=== PATIENT | male | born 1950 | race Hispanic/Latino ===

== ENCOUNTER → 2018-02-19 | Outpatient (CLI) | payer OTHER | LOC: RAH 11:22 | PROVIDERS: ATTEND Internal Medicine | DX: M11.262 Other chondrocalcinosis, left knee (principal); M17.12 Unilateral primary osteoarthritis, left knee | CPT/HCPCS: 73562; 73590; 93971 ==

== ENCOUNTER → 2018-05-31 | Outpatient (CLI) | payer OTHER | END | disposition home or self-care (01) | LOC: RAH 14:26 | PROVIDERS: ATTEND Internal Medicine | DX: I82.402 Acute embolism and thrombosis of unspecified deep veins of left lower extremity (principal) | CPT/HCPCS: 93971 ==

== ENCOUNTER → 2020-10-15 | Outpatient (CLI) | payer OTHER | END | disposition home or self-care (01) | LOC: RAH 09:33 | PROVIDERS: ATTEND Internal Medicine | DX: M19.011 Primary osteoarthritis, right shoulder (principal); M47.816 Spondylosis without myelopathy or radiculopathy, lumbar region; M48.07 Spinal stenosis, lumbosacral region; M25.78 Osteophyte, vertebrae; M54.5 Low back pain; M25.511 Pain in right shoulder | CPT/HCPCS: 72100; 73030 ==

== ENCOUNTER 2021-03-12 12:41 | Inpatient (IN) | payer OTHER ==
[~2021-03-12] VITALS: Ht 180.3 cm; Wt 84.1 kg
[2021-03-12 13:44] LABS: BASOPHILS % (AUTO) 0.5 % (0.0-5.0); EOSINOPHILS % (AUTO) 2.2 % (0.0-8.0); HEMATOCRIT 35.6 % (42-54); LYMPHOCYTES % (AUTO) 14.7 % (21.0-51.0); MEAN CORPUSCULAR HEMOGLOBIN 30.1 pg (27.0-33.0); MEAN CORPUSCULAR VOLUME 88.6 fL (79-99); MONOCYTES % (AUTO) 6.5 % (3.0-13.0); NEUTROPHILS % (AUTO) 75.8 % (40.0-77.0); PLATELET COUNT (AUTO) 185 K/uL (130-400); RED BLOOD CELL COUNT(AUTO) 4.02 MIL/uL (4.50-6.20); RED CELL DISTRIBUTION WIDTH 13.3 % (11.0-15.5); WHITE BLOOD COUNT (AUTO) 9.4 K/uL (4.8-10.8)
[2021-03-12 13:55] LABS: CREATININE 2.8 mg/dL (0.5-1.5); POTASSIUM 4.9 mmol/L (3.5-5.1)
[2021-03-12 14:04] LABS: ALBUMIN 3.8 g/dL (3.5-5.0); BILIRUBIN,TOTAL 0.5 mg/dL (0.2-1.0); TOTAL PROTEIN, SERUM 6.8 g/dL (6.0-8.3)
[2021-03-12 14:17] LABS: B-TYPE NATRIURETIC PEPTIDE 27 pg/mL (0-100)
[2021-03-12] MEDS ORDERED: AMLO-257 PO (16:11)
[2021-03-12] MEDS ORDERED: LOSA100T58 PO (16:11)
[2021-03-12] MEDS ORDERED: FURO20TA4 PO (16:11)
[2021-03-12] MEDS ORDERED: CYAN250010 PO (16:11)
[2021-03-12] MEDS ORDERED: ATOR40TA71 PO (16:11)
[2021-03-12] MEDS ORDERED: MECL-160 PO (16:11)
[2021-03-12] MEDS ORDERED: HYDR-3420 PO (16:11)
[2021-03-12] MEDS ORDERED: NEBI10TA PO (16:11)
[2021-03-12] MEDS ORDERED: ONDANSETRON 4MG INJ IV PRN (16:30)
[2021-03-12] MEDS ORDERED: ACETAMINOPHEN 325 MG TAB PO PRN (16:30)
[2021-03-12] MEDS: FAMOTIDINE 20MG TAB PO SCH (17:24)
[2021-03-12] MEDS: 0.9%NACL 1000ML 1,000 ML IV SCH (17:24)
[2021-03-12 17:34] LABS: HEMOGLOBIN A1C 6.1 % (4.0-6.0)
[2021-03-12 17:57] LABS: % IRON SATURATION 28.8 % (30-44)
[2021-03-12 18:06] LABS: MAGNESIUM 1.9 mg/dL (1.80-2.40); PHOSPHORUS 4.9 mg/dL (2.5-4.9); THYROID STIMULATING HORMONE 0.68 uIU/mL (0.36-3.74)
[2021-03-12 20:23] LABS: APPEARANCE,URINE Clear (CLEAR); BILIRUBIN,URINE Negative (NEGATIVE); COLOR,URINE Yellow (YELLOW); GLUCOSE, URINE (UA) Negative (NEGATIVE); KETONES,URINE Negative (NEGATIVE); LEUKOCYTE ESTERASE ,URINE Negative (NEGATIVE); NITRATE,URINE Negative (NEGATIVE); OCCULT BLOOD,URINE Negative (NEGATIVE); PROTEIN,URINE Negative (NEGATIVE); UROBILINOGEN,URINE 0.2 mg/dL (0.2-1.0)
[2021-03-12 20:28] LABS: PROTEIN,URINE RANDOM 8.3 mg/dL (0-11.9)
[2021-03-12] MEDS: INSULIN HUMULIN R 100 UNIT/ML 3ML SQ SCH (21:00)
[2021-03-12] MEDS: ATORVASTATIN 40 MG TABLET PO SCH (21:31)
[2021-03-12] MEDS: AMLODIPINE 5 MG TAB PO SCH (21:31)
[2021-03-12] MEDS: HYDRALAZINE HCL 10 MG TABLET PO SCH (21:31)
[2021-03-13] MEDS: ACETAMINOPHEN 325 MG TAB PO PRN ×4 (01:41→18:40)
[2021-03-13] MEDS: 0.9%NACL 1000ML 1,000 ML IV SCH ×2 (02:20→09:00)
[2021-03-13 07:30] LABS: CHOLESTEROL 78 mg/dL (<200); HDL CHOLESTEROL 38 mg/dL (29-71); LDL DIRECT 28 mg/dL (0-99); TRIGLYCERIDES 53 mg/dL (30-200)
[2021-03-13] MEDS: INSULIN HUMULIN R 100 UNIT/ML 3ML SQ SCH ×4 (07:30→20:44)
[2021-03-13] MEDS: CYANOCOBALAMIN (VITAMIN B-12) 1,000 MCG TABLET PO SCH (07:54)
[2021-03-13] MEDS: FAMOTIDINE 20MG TAB PO SCH (09:00)
[2021-03-13] MEDS: HYDRALAZINE HCL 10 MG TABLET PO SCH ×3 (09:00→21:33)
[2021-03-13] MEDS: AMLODIPINE 5 MG TAB PO SCH ×2 (09:00→21:33)
[2021-03-13] MEDS: ENOXAPARIN SODIUM 40 MG/0.4 ML SYRINGE SQ SCH (09:25)
[2021-03-13 09:29] LABS: BASOPHILS % (AUTO) 0.7 % (0.0-5.0); HEMATOCRIT 36.3 % (42-54); LYMPHOCYTES % (AUTO) 27.3 % (21.0-51.0); MEAN CORPUSCULAR HGB CONC 33.6 g/dL (32.0-36.0); MEAN CORPUSCULAR VOLUME 89.2 fL (79-99); MONOCYTES % (AUTO) 9.2 % (3.0-13.0); NEUTROPHILS % (AUTO) 57.5 % (40.0-77.0); PLATELET COUNT (AUTO) 174 K/uL (130-400); RED BLOOD CELL COUNT(AUTO) 4.07 MIL/uL (4.50-6.20); RED CELL DISTRIBUTION WIDTH 13.4 % (11.0-15.5)
[2021-03-13 09:42] LABS: ALBUMIN 3.6 g/dL (3.5-5.0); BILIRUBIN,TOTAL 0.6 mg/dL (0.2-1.0); CREATININE 1.9 mg/dL (0.5-1.5); POTASSIUM 4.6 mmol/L (3.5-5.1); TOTAL PROTEIN, SERUM 6.4 g/dL (6.0-8.3)
[2021-03-13] MEDS: ATORVASTATIN 40 MG TABLET PO SCH (21:33)
[2021-03-14] MEDS: ACETAMINOPHEN 325 MG TAB PO PRN (01:12)
[2021-03-14 07:06] LABS: BASOPHILS % (AUTO) 0.7 % (0.0-5.0); EOSINOPHILS % (AUTO) 7.8 % (0.0-8.0); HEMATOCRIT 35.2 % (42-54); LYMPHOCYTES % (AUTO) 37.2 % (21.0-51.0); MEAN CORPUSCULAR HEMOGLOBIN 29.7 pg (27.0-33.0); MEAN CORPUSCULAR HGB CONC 33.8 g/dL (32.0-36.0); MEAN CORPUSCULAR VOLUME 87.8 fL (79-99); MONOCYTES % (AUTO) 9.8 % (3.0-13.0); NEUTROPHILS % (AUTO) 44.5 % (40.0-77.0); PLATELET COUNT (AUTO) 169 K/uL (130-400); RED BLOOD CELL COUNT(AUTO) 4.01 MIL/uL (4.50-6.20); RED CELL DISTRIBUTION WIDTH 13.1 % (11.0-15.5); WHITE BLOOD COUNT (AUTO) 5.9 K/uL (4.8-10.8)
[2021-03-14 07:28] LABS: ALBUMIN 3.3 g/dL (3.5-5.0); BILIRUBIN,TOTAL 0.6 mg/dL (0.2-1.0); CREATININE 1.5 mg/dL (0.5-1.5); POTASSIUM 4.4 mmol/L (3.5-5.1); TOTAL PROTEIN, SERUM 6.2 g/dL (6.0-8.3)
[2021-03-14] MEDS: INSULIN HUMULIN R 100 UNIT/ML 3ML SQ SCH ×4 (07:30→21:00)
[2021-03-14] MEDS: ENOXAPARIN SODIUM 40 MG/0.4 ML SYRINGE SQ SCH (08:58)
[2021-03-14] MEDS: FAMOTIDINE 20MG TAB PO SCH (08:58)
[2021-03-14] MEDS: CYANOCOBALAMIN (VITAMIN B-12) 1,000 MCG TABLET PO SCH (08:58)
[2021-03-14] MEDS: AMLODIPINE 5 MG TAB PO SCH ×2 (08:58→20:52)
[2021-03-14] MEDS: HYDRALAZINE HCL 10 MG TABLET PO SCH ×3 (08:58→20:52)
[2021-03-14] MEDS ORDERED: INS7030 SQ ×2 (14:55)
[2021-03-14 16:00] VITALS: BP 147/60
[2021-03-14 20:00] VITALS: BP 155/64
[2021-03-14] MEDS: ATORVASTATIN 40 MG TABLET PO SCH (20:52)
[2021-03-15] VITALS: BP 140/53
[2021-03-15 04:00] VITALS: BP 135/57
[2021-03-15 04:22] LABS: BASOPHILS % (AUTO) 0.6 % (0.0-5.0); EOSINOPHILS % (AUTO) 7.2 % (0.0-8.0); HEMATOCRIT 33.9 % (42-54); LYMPHOCYTES % (AUTO) 32.6 % (21.0-51.0); MEAN CORPUSCULAR HEMOGLOBIN 29.5 pg (27.0-33.0); MEAN CORPUSCULAR HGB CONC 33.3 g/dL (32.0-36.0); MEAN CORPUSCULAR VOLUME 88.5 fL (79-99); MONOCYTES % (AUTO) 8.3 % (3.0-13.0); PLATELET COUNT (AUTO) 152 K/uL (130-400); RED BLOOD CELL COUNT(AUTO) 3.83 MIL/uL (4.50-6.20); RED CELL DISTRIBUTION WIDTH 12.9 % (11.0-15.5); WHITE BLOOD COUNT (AUTO) 6.5 K/uL (4.8-10.8)
[2021-03-15 04:35] LABS: ALBUMIN 3.2 g/dL (3.5-5.0); BILIRUBIN,TOTAL 0.5 mg/dL (0.2-1.0); CREATININE 1.2 mg/dL (0.5-1.5); POTASSIUM 3.9 mmol/L (3.5-5.1)
[2021-03-15 04:53] LABS: INR 1.21 (0.85-1.15)
[2021-03-15 04:55] LABS: PARTIAL THROMBOPLASTIN TIME 26.6 SEC (26.3-35.5)
[2021-03-15] MEDS: INSULIN HUMULIN R 100 UNIT/ML 3ML SQ SCH ×4 (06:58→20:32)
[2021-03-15 07:45] VITALS: BP 106/67
[2021-03-15] MEDS: CYANOCOBALAMIN (VITAMIN B-12) 1,000 MCG TABLET PO SCH (08:00)
[2021-03-15] MEDS: AMLODIPINE 5 MG TAB PO SCH ×2 (08:15→20:32)
[2021-03-15] MEDS: FAMOTIDINE 20MG TAB PO SCH (08:15)
[2021-03-15] MEDS: HYDRALAZINE HCL 10 MG TABLET PO SCH ×3 (08:15→20:32)
[2021-03-15 11:36] VITALS: BP 115/58
[2021-03-15 15:47] VITALS: BP 157/55
[2021-03-15 19:00] VITALS: BP 160/64
[2021-03-15] MEDS: ATORVASTATIN 40 MG TABLET PO SCH (20:32)
[2021-03-16] VITALS (11 sets, daily range): BP systolic 129–154; BP diastolic 56–75
[2021-03-16 05:33] LABS: BASOPHILS % (AUTO) 0.7 % (0.0-5.0); EOSINOPHILS % (AUTO) 6.3 % (0.0-8.0); HEMATOCRIT 32.5 % (42-54); LYMPHOCYTES % (AUTO) 30.5 % (21.0-51.0); MEAN CORPUSCULAR HEMOGLOBIN 30.1 pg (27.0-33.0); MEAN CORPUSCULAR HGB CONC 34.8 g/dL (32.0-36.0); MEAN CORPUSCULAR VOLUME 86.4 fL (79-99); MONOCYTES % (AUTO) 9.1 % (3.0-13.0); NEUTROPHILS % (AUTO) 53.1 % (40.0-77.0); PLATELET COUNT (AUTO) 168 K/uL (130-400); RED BLOOD CELL COUNT(AUTO) 3.76 MIL/uL (4.50-6.20); RED CELL DISTRIBUTION WIDTH 12.7 % (11.0-15.5)
[2021-03-16 05:50] LABS: ALBUMIN 3.3 g/dL (3.5-5.0); BILIRUBIN,TOTAL 0.7 mg/dL (0.2-1.0); CREATININE 1.3 mg/dL (0.5-1.5); TOTAL PROTEIN, SERUM 6.2 g/dL (6.0-8.3)
[2021-03-16] MEDS: INSULIN HUMULIN R 100 UNIT/ML 3ML SQ SCH ×4 (06:35→21:00)
[2021-03-16] MEDS: HYDRALAZINE HCL 10 MG TABLET PO SCH ×3 (08:50→21:59)
[2021-03-16] MEDS: AMLODIPINE 5 MG TAB PO SCH ×2 (08:51→21:59)
[2021-03-16] MEDS ORDERED: MEPERIDINE-PF 25 MG/ML SYG ONE (13:47)
[2021-03-16] MEDS ORDERED: MIDAZOLAM HCL 1 MG/ML 2ML VIAL ONE (13:47)
[2021-03-16] MEDS ORDERED: LIDOCAINE HCL 400MG/20ML VIAL ONE ×2 (13:47→14:56)
[2021-03-16] MEDS ORDERED: HEPARIN 10,000 UNIT/10ML (1,000 UNIT/ML) VIAL ONE (14:10)
[2021-03-16] MEDS ORDERED: ISOPROTERENOL HCL 0.2 MG/ML AMP/VIAL/BAG ONE (14:38)
[2021-03-16] MEDS: ASPIRIN 81 MG EC TAB PO SCH (16:44)
[2021-03-16] MEDS: FAMOTIDINE 20MG TAB PO SCH (16:44)
[2021-03-16] MEDS: CYANOCOBALAMIN (VITAMIN B-12) 1,000 MCG TABLET PO SCH (16:45)
[2021-03-16] MEDS: ATORVASTATIN 40 MG TABLET PO SCH (21:59)
[2021-03-17] VITALS: BP 143/68
[2021-03-17 04:00] VITALS: BP 142/70
[2021-03-17 04:33] LABS: BASOPHILS % (AUTO) 0.4 % (0.0-5.0); HEMATOCRIT 33.9 % (42-54); LYMPHOCYTES % (AUTO) 27.4 % (21.0-51.0); MEAN CORPUSCULAR HEMOGLOBIN 29.2 pg (27.0-33.0); MEAN CORPUSCULAR HGB CONC 33.6 g/dL (32.0-36.0); MEAN CORPUSCULAR VOLUME 86.9 fL (79-99); MONOCYTES % (AUTO) 7.8 % (3.0-13.0); NEUTROPHILS % (AUTO) 59.1 % (40.0-77.0); PLATELET COUNT (AUTO) 155 K/uL (130-400); RED CELL DISTRIBUTION WIDTH 12.7 % (11.0-15.5); WHITE BLOOD COUNT (AUTO) 7.2 K/uL (4.8-10.8)
[2021-03-17 04:56] LABS: ALBUMIN 3.4 g/dL (3.5-5.0); BILIRUBIN,TOTAL 0.7 mg/dL (0.2-1.0); CREATININE 1.3 mg/dL (0.5-1.5); POTASSIUM 4.1 mmol/L (3.5-5.1); TOTAL PROTEIN, SERUM 6.2 g/dL (6.0-8.3)
[2021-03-17] MEDS: INSULIN HUMULIN R 100 UNIT/ML 3ML SQ SCH (06:49)
[2021-03-17 07:00] VITALS: BP 141/61
[2021-03-17] MEDS ORDERED: AEC81 PO (07:53)
[2021-03-17] MEDS ORDERED: LINA5TAB PO (07:53)
[2021-03-17] MEDS: ASPIRIN 81 MG EC TAB PO SCH (08:03)
[2021-03-17] MEDS: AMLODIPINE 5 MG TAB PO SCH (08:03)
[2021-03-17] MEDS: FAMOTIDINE 20MG TAB PO SCH (08:04)
[2021-03-17] MEDS: HYDRALAZINE HCL 10 MG TABLET PO SCH (08:04)
[2021-03-17] MEDS: CYANOCOBALAMIN (VITAMIN B-12) 1,000 MCG TABLET PO SCH (08:04)
[2021-03-17] MEDS ORDERED: METO5 PO (08:19)
[2021-03-17] MEDS ORDERED: METOCLOPRAMIDE 5 MG TABLET PO SCH (11:30)
[2021-04-22] MEDS ORDERED: HYDR-4153 PO (11:31)
== END 2021-03-17 09:20 | disposition home or self-care (01) | DRG 274 ==
LOC: EDH 12:41 → OBSVTOIN 16:29 → EDHIP 16:29 → 4DH 03-14 12:56
PROVIDERS: ADMIT Internal Medicine; ATTEND Internal Medicine
PROC: 4A0234Z Measurement of Cardiac Electrical Activity, Percutaneous Approach (ICD-10-PCS; principal; 2021-03-16)
PROC: 4A023FZ Measurement of Cardiac Rhythm, Percutaneous Approach (ICD-10-PCS; 2021-03-16)
PROC: 0JH602Z Insertion of Monitoring Device into Chest Subcutaneous Tissue and Fascia, Open Approach (ICD-10-PCS; 2021-03-16)
DX: I44.0 Atrioventricular block, first degree (principal); N17.9 Acute kidney failure, unspecified; I25.3 Aneurysm of heart; G45.1 Carotid artery syndrome (hemispheric); I13.0 Hypertensive heart and chronic kidney disease with heart failure and stage 1 through stage 4 chronic kidney disease, or unspecified chronic kidney disease; I50.32 Chronic diastolic (congestive) heart failure; R55 Syncope and collapse; E11.22 Type 2 diabetes mellitus with diabetic chronic kidney disease; E11.43 Type 2 diabetes mellitus with diabetic autonomic (poly)neuropathy; K31.84 Gastroparesis; Z20.822 Contact with and (suspected) exposure to COVID-19; E11.40 Type 2 diabetes mellitus with diabetic neuropathy, unspecified; E78.5 Hyperlipidemia, unspecified; E11.649 Type 2 diabetes mellitus with hypoglycemia without coma; N18.30 Chronic kidney disease, stage 3 unspecified; I45.10 Unspecified right bundle-branch block; M47.819 Spondylosis without myelopathy or radiculopathy, site unspecified; I95.9 Hypotension, unspecified; M25.461 Effusion, right knee; R63.4 Abnormal weight loss; Z68.25 Body mass index [BMI] 25.0-25.9, adult; Z79.82 Long term (current) use of aspirin; Z79.899 Other long term (current) drug therapy; Z88.8 Allergy status to other drugs, medicaments and biological substances; Z86.73 Personal history of transient ischemic attack (TIA), and cerebral infarction without residual deficits; Z82.49 Family history of ischemic heart disease and other diseases of the circulatory system
CPT/HCPCS: 33285; 36415; 70220; 70450; 71045; 73562; 80053; 80061; 81003; 82550; 82570; 82607; 82728; 82746; 82948; 83036; 83540; 83550; 83735; 83874; 83880; 84100; 84153; 84156; 84300; 84443; 84484; 85025; 85610; 85730; 87635; 93005; 93306; 93356; 93620; 93623; 93880; 99156; 99157; C1730; C1894; G0378; J1644; J1650; J2175; J2250; J3490; J7030

== ENCOUNTER 2021-04-25 05:41 | Day surgery (SDC) | payer OTHER ==
[2021-04-21 13:59] LABS: BASOPHILS % (AUTO) 0.6 % (0.0-5.0); EOSINOPHILS % (AUTO) 3.4 % (0.0-8.0); HEMATOCRIT 34.9 % (42-54); LYMPHOCYTES % (AUTO) 25.2 % (21.0-51.0); MEAN CORPUSCULAR HEMOGLOBIN 29.9 pg (27.0-33.0); MEAN CORPUSCULAR HGB CONC 33.8 g/dL (32.0-36.0); MEAN CORPUSCULAR VOLUME 88.4 fL (79-99); MONOCYTES % (AUTO) 7.3 % (3.0-13.0); NEUTROPHILS % (AUTO) 63.2 % (40.0-77.0); PLATELET COUNT (AUTO) 186 K/uL (130-400); RED BLOOD CELL COUNT(AUTO) 3.95 MIL/uL (4.50-6.20); RED CELL DISTRIBUTION WIDTH 12.9 % (11.0-15.5); WHITE BLOOD COUNT (AUTO) 7.9 K/uL (4.8-10.8)
[2021-04-21 14:05] LABS: CREATININE 1.6 mg/dL (0.5-1.5); POTASSIUM 4.3 mmol/L (3.5-5.1)
[2021-04-21 14:12] LABS: INR 1.16 (0.85-1.15); PROTHROMBIN TIME 12.5 SEC (9.6-11.6)
[2021-04-21 14:13] LABS: PARTIAL THROMBOPLASTIN TIME 25.1 SEC (26.3-35.5)
[2021-04-22 10:28] VITALS: BP 170/68
[2021-04-25] VITALS (9 sets, daily range): BP systolic 129–147; BP diastolic 57–68
[~2021-04-25] VITALS: Ht 180.3 cm; Wt 88.1 kg
[~2021-04-25 05:41] MED LIST: AEC81 PO; AMLO-257 PO; ATOR40TA71 PO; CYAN250010 PO; HYDR-4153 PO; LINA5TAB PO; METO5 PO
[2021-04-25] MEDS ORDERED: 0.9% NACL 500ML IV.SOLN 500 ML IV SCH (06:00)
[2021-04-25] MEDS ORDERED: CEFAZOLIN SODIUM 1 GM VIAL IVP SCH (06:00)
[2021-04-25] MEDS ORDERED: 0.9%NACL 1000ML 1,000 ML IV ONE (06:15)
[2021-04-25] MEDS ORDERED: BUPIVACAINE/PF 0.25% 30ML VIAL IJ ONE (07:13)
[2021-04-25] MEDS ORDERED: MIDAZOLAM HCL 1 MG/ML 2ML VIAL ONE ×2 (07:13→08:21)
[2021-04-25] MEDS ORDERED: LIDOCAINE HCL 1% MDV 50ML VIAL ONE (07:13)
[2021-04-25] MEDS ORDERED: MEPERIDINE-PF 25 MG/ML SYG ONE ×2 (07:13→08:21)
[2021-04-25] MEDS ORDERED: IOHEXOL-350 50ML VIAL IV ONE (08:37)
[2021-04-25] MEDS ORDERED: TRAMADOL HCL 50 MG TABLET PO PRN (09:30)
[2021-04-25] MEDS ORDERED: TRAM50TA4 PO (09:30)
== END 2021-04-25 13:25 | disposition home or self-care (01) ==
LOC: DAH 05:41
PROVIDERS: ATTEND Internal Medicine Cardiovascular Disease
DX: I49.5 Sick sinus syndrome (principal); I44.1 Atrioventricular block, second degree; E78.5 Hyperlipidemia, unspecified; I25.10 Atherosclerotic heart disease of native coronary artery without angina pectoris; Z86.73 Personal history of transient ischemic attack (TIA), and cerebral infarction without residual deficits; I12.9 Hypertensive chronic kidney disease with stage 1 through stage 4 chronic kidney disease, or unspecified chronic kidney disease; E11.22 Type 2 diabetes mellitus with diabetic chronic kidney disease; N18.30 Chronic kidney disease, stage 3 unspecified; Z95.0 Presence of cardiac pacemaker; Z88.5 Allergy status to narcotic agent; Z79.01 Long term (current) use of anticoagulants; Z79.899 Other long term (current) drug therapy
CPT/HCPCS: 33208; 33286; 36415; 71045; 80048; 82948 ×2; 85025; 85610; 85730; 93005; A4215; A4216; A4221; A4222; A4223 ×3; A4606; A4649; A4663; A6251; A6258; C1785; C1898 ×2; J0690; J2175 ×2; J2250 ×2; J3490 ×2; J7030; Q9967; 99156; 99157

== ENCOUNTER → 2021-10-05 | Outpatient (CLI) | payer OTHER ==
[~2021-10-05] MED LIST changes: +TRAM50TA4 PO
== END | disposition home or self-care (01) ==
LOC: RAH 08:50
PROVIDERS: ATTEND Internal Medicine
DX: Z01.818 Encounter for other preprocedural examination (principal); I13.0 Hypertensive heart and chronic kidney disease with heart failure and stage 1 through stage 4 chronic kidney disease, or unspecified chronic kidney disease; I50.9 Heart failure, unspecified; N18.9 Chronic kidney disease, unspecified; I70.0 Atherosclerosis of aorta; M47.815 Spondylosis without myelopathy or radiculopathy, thoracolumbar region; Z95.0 Presence of cardiac pacemaker
CPT/HCPCS: 71046

== ENCOUNTER 2021-11-29 05:30 | Day surgery (SDC) | payer OTHER ==
[2021-11-23 11:33] LABS: BASOPHILS % (AUTO) 0.9 % (0.0-5.0); EOSINOPHILS % (AUTO) 8.8 % (0.0-8.0); HEMATOCRIT 39.3 % (42-54); MEAN CORPUSCULAR HEMOGLOBIN 30.2 pg (27.0-33.0); MEAN CORPUSCULAR HGB CONC 33.8 g/dL (32.0-36.0); MEAN CORPUSCULAR VOLUME 89.3 fL (79-99); MONOCYTES % (AUTO) 8.7 % (3.0-13.0); NEUTROPHILS % (AUTO) 49.3 % (40.0-77.0); PLATELET COUNT (AUTO) 185 K/uL (130-400); RED CELL DISTRIBUTION WIDTH 13.1 % (11.0-15.5); WHITE BLOOD COUNT (AUTO) 6.8 K/uL (4.8-10.8)
[2021-11-23 11:42] LABS: CREATININE 1.5 mg/dL (0.5-1.5); POTASSIUM 4.8 mmol/L (3.5-5.1)
[2021-11-28 09:54] VITALS: BP 157/64
[2021-11-29] VITALS (18 sets, daily range): BP systolic 98–147; BP diastolic 48–73
[~2021-11-29] VITALS: Ht 180.3 cm; Wt 87.1 kg
[~2021-11-29 05:30] MED LIST changes: -CYAN250010 PO; +CYAN50009 PO; +FERR-82 PO; +LACTATED RINGERS 1000ML 1,000 ML IV SCH; +LOSA100T58 PO; -METO5 PO; +METO50TA18 PO; -TRAM50TA4 PO; +TRAZ-185 PO
[2021-11-29] MEDS: CEFAZOLIN SODIUM 1 GM VIAL IVP SCH ×2 (06:00→10:29)
[2021-11-29] MEDS ORDERED: SUCCINYLCHOLINE CHLORIDE 20 MG/ML 10 ML VIAL ONE (09:46)
[2021-11-29] MEDS ORDERED: MIDAZOLAM HCL 1 MG/ML 2ML VIAL ONE (09:47)
[2021-11-29] MEDS ORDERED: GLYCOPYRROLATE 1 MG/5 ML SYRINGE ONE (09:47)
[2021-11-29] MEDS ORDERED: ONDANSETRON 4MG INJ ONE (09:47)
[2021-11-29] MEDS ORDERED: ROCURONIUM 10MG/1ML SYR 10 MG/ML ML ONE (09:47)
[2021-11-29] MEDS ORDERED: DEXAMETHASONE SOD PHOSPHATE 10MG/ML 1ML VIAL ONE (09:47)
[2021-11-29] MEDS ORDERED: NEOSTIGMINE 5MG/5ML SYR IV ONE (09:47)
[2021-11-29] MEDS ORDERED: PROPOFOL 10 MG/ML 20ML VIAL IV ONE (09:47)
[2021-11-29] MEDS ORDERED: FENTANYL CITRATE PF 50 MCG/1 ML 2ML VIAL ONE ×2 (09:48→11:16)
[2021-11-29] MEDS ORDERED: MEPERIDINE-PF 25 MG/ML SYG ONE (12:28)
== END 2021-11-29 14:15 | disposition home or self-care (01) ==
LOC: DAH 05:30
PROVIDERS: ATTEND Orthopaedic Surgery
DX: M25.611 Stiffness of right shoulder, not elsewhere classified (principal); G89.29 Other chronic pain; M65.811 Other synovitis and tenosynovitis, right shoulder; E11.9 Type 2 diabetes mellitus without complications; I25.10 Atherosclerotic heart disease of native coronary artery without angina pectoris; Z86.73 Personal history of transient ischemic attack (TIA), and cerebral infarction without residual deficits; Z83.3 Family history of diabetes mellitus; Z98.890 Other specified postprocedural states; Z90.49 Acquired absence of other specified parts of digestive tract; Z79.01 Long term (current) use of anticoagulants; Z79.899 Other long term (current) drug therapy
CPT/HCPCS: 23430; 29825; 36415; 64415; 76942; 80048; 82948 ×2; 85025; 87635; A4215; A4221; A4222; A4223; A4565; A4649 ×4; A4663; A5120; A6207; A6260; C1713 ×2; C9803; G0168; J0330; J0690; J1100; J2175; J2250; J2405; J2704; J2710; J3010 ×2; J3490; J7120

== ENCOUNTER → 2023-04-23 | Outpatient (CLI) | payer OTHER ==
[~2023-04-23] MED LIST changes: -LACTATED RINGERS 1000ML 1,000 ML IV SCH; -LOSA100T58 PO; +LOSA100T59 PO
== END | disposition home or self-care (01) ==
LOC: RAH 11:04
PROVIDERS: ATTEND Internal Medicine
DX: S42.032A Displaced fracture of lateral end of left clavicle, initial encounter for closed fracture (principal); S49.92XA Unspecified injury of left shoulder and upper arm, initial encounter; S29.9XXA Unspecified injury of thorax, initial encounter; M19.012 Primary osteoarthritis, left shoulder; Z95.0 Presence of cardiac pacemaker; W19.XXXA Unspecified fall, initial encounter; Y93.89 Activity, other specified; Y92.89 Other specified places as the place of occurrence of the external cause; Y99.8 Other external cause status
CPT/HCPCS: 71046; 72040; 73030

== ENCOUNTER 2024-01-31 08:48 | Observation (INO) | payer OTHER, MEDICARE ==
[~2024-01-31] VITALS: Ht 180.3 cm; Wt 83.8 kg
[~2024-01-31 08:48] MED LIST changes: -HYDR-4153 PO; +HYDR25TA67 PO
[2024-01-31 09:20] LABS: HEMATOCRIT 32.4 % (42-54); MEAN CORPUSCULAR HEMOGLOBIN 30.1 pg (27.0-33.0); MEAN CORPUSCULAR VOLUME 88.8 fL (79-99); RED BLOOD CELL COUNT(AUTO) 3.65 MIL/uL (4.50-6.20); RED CELL DISTRIBUTION WIDTH 13.2 % (11.0-15.5); WHITE BLOOD COUNT (AUTO) 5.4 K/uL (4.8-10.8)
[2024-01-31 09:30] LABS: CREATININE 1.7 mg/dL (0.5-1.3); POTASSIUM 4.1 mmol/L (3.5-5.1)
[2024-01-31 11:28] LABS: ADD UA MICROSCOPIC YES; APPEARANCE,URINE CLEAR (CLEAR); BILIRUBIN,URINE NEGATIVE (NEGATIVE); COLOR,URINE COLORLESS (YELLOW); GLUCOSE, URINE (UA) 500 mg/dL (NEGATIVE); KETONES,URINE NEGATIVE (NEGATIVE); LEUKOCYTE ESTERASE ,URINE NEGATIVE Leu/uL (NEGATIVE); NITRATE,URINE NEGATIVE (NEGATIVE); OCCULT BLOOD,URINE NEGATIVE (NEGATIVE); PROTEIN,URINE NEGATIVE (NEGATIVE); UROBILINOGEN,URINE 0.2 mg/dL (0.2-1.0)
[2024-01-31 11:29] LABS: RBC,URINE 0-1 /HPF (0-1); WBC,URINE 0-1 /HPF (0-1)
[2024-01-31] MEDS: mecliZINE HCL 25 MG TABLET PO ONE (11:56)
[2024-01-31] MEDS ORDERED: MAGNESIUM 2GM PREMIX 50ML 50 ML IV PRN (13:00)
[2024-01-31] MEDS ORDERED: acetaMINOPHEN 500 MG TABLET PO PRN (13:00)
[2024-01-31] MEDS ORDERED: KCL 20 MEQ ERTAB PO PRN (13:00)
[2024-01-31] MEDS ORDERED: POTASSIUM CHLORIDE 20MEQ/100ML 100 ML IV PRN (13:00)
[2024-01-31] MEDS ORDERED: POTASSIUM CHLORIDE 10% ELIXIR 20 MEQ/15 ML UDCUP PO PRN (13:00)
[2024-01-31 14:03] LABS: HEMOGLOBIN A1C 5.8 % (4.0-6.0)
[2024-01-31 14:12] LABS: INR 1.16 (0.85-1.15); PROTHROMBIN TIME 12.4 SEC (9.6-11.6)
[2024-01-31 14:13] LABS: PARTIAL THROMBOPLASTIN TIME 24.3 SEC (26.3-35.5)
[2024-01-31 14:14] VITALS: O2SAT 98
[2024-01-31 14:14] LABS: THYROID STIMULATING HORMONE 0.85 uIU/mL (0.36-3.74)
[2024-01-31] MEDS: 0.9%NACL 1000ML 1,000 ML IV ONE (14:20)
[2024-01-31 16:00] VITALS: BP 136/61; PULSE 60; RESP 19; TEMP 97.5
[2024-01-31] MEDS: INSULIN humuLIN R 100 UNIT/ML 3ML SQ SCH (16:24)
[2024-01-31 19:09] VITALS: O2SAT 98
[2024-01-31 20:00] VITALS: BP 143/63; PULSE 60; RESP 18; TEMP 98.3
[2024-01-31] MEDS: hydrALAZine 25MG TABLET PO SCH (21:02)
[2024-01-31] MEDS: amLODIPine 5 MG TAB PO SCH (21:02)
[2024-01-31] MEDS: FAMOTIDINE 20MG VIAL IV SCH (21:03)
[2024-02-01] VITALS (7 sets, daily range): BP systolic 123–154; BP diastolic 56–81; PULSE 60–63; RESP 14–20; TEMP 97.7–98.7; O2SAT 98
[2024-02-01 05:50] LABS: BASOPHILS # (AUTO) 0.05 K/uL (0.00-0.20); EOSINOPHILS # (AUTO) 0.31 K/uL (0.00-0.70); EOSINOPHILS % (AUTO) 5.9 % (0.0-8.0); IMMATURE GRANULOCYTE ABSOLUTE 0.01 K/uL (0-1); LYMPHOCYTES # (AUTO) 1.6 K/uL (1.0-4.8); LYMPHOCYTES % (AUTO) 30.7 % (21.0-51.0); MEAN CORPUSCULAR HEMOGLOBIN 30.3 pg (27.0-33.0); MEAN CORPUSCULAR HGB CONC 33.3 g/dL (32.0-36.0); MEAN CORPUSCULAR VOLUME 90.9 fL (79-99); MONOCYTES # (AUTO) 0.4 K/uL (0.1-1.0); MONOCYTES % (AUTO) 8.2 % (3.0-13.0); NEUTROPHILS # (AUTO) 2.8 K/uL (1.8-7.7); PLATELET COUNT (AUTO) 154 K/uL (130-400); RED BLOOD CELL COUNT(AUTO) 3.63 MIL/uL (4.50-6.20); RED CELL DISTRIBUTION WIDTH 13.2 % (11.0-15.5); WHITE BLOOD COUNT (AUTO) 5.3 K/uL (4.8-10.8)
[2024-02-01 06:09] LABS: CREATININE 1.5 mg/dL (0.5-1.3); POTASSIUM 4.6 mmol/L (3.5-5.1)
[2024-02-01] MEDS ORDERED: DAPA10TA PO (12:31)
[2024-02-01] MEDS ORDERED: TRAZ-187 PO (12:31)
[2024-02-01] MEDS: atorVAStatin 40 MG TABLET PO SCH (20:20)
[2024-02-02] VITALS: BP 127/62; PULSE 61; RESP 20; TEMP 97.7
[2024-02-02 04:00] VITALS: BP 140/71; PULSE 64; RESP 20; TEMP 97.9
[2024-02-02 08:06] VITALS: BP 159/75; PULSE 60; RESP 18; TEMP 97.9
[2024-02-02 10:35] LABS: BASOPHILS # (AUTO) 0.04 K/uL (0.00-0.20); BASOPHILS % (AUTO) 0.8 % (0.0-5.0); EOSINOPHILS # (AUTO) 0.28 K/uL (0.00-0.70); EOSINOPHILS % (AUTO) 5.3 % (0.0-8.0); HEMATOCRIT 37.7 % (42-54); IMMATURE GRANULOCYTE ABSOLUTE 0.01 K/uL (0-1); LYMPHOCYTES # (AUTO) 1.3 K/uL (1.0-4.8); LYMPHOCYTES % (AUTO) 24.5 % (21.0-51.0); MEAN CORPUSCULAR HEMOGLOBIN 30.3 pg (27.0-33.0); MEAN CORPUSCULAR HGB CONC 33.7 g/dL (32.0-36.0); MONOCYTES # (AUTO) 0.4 K/uL (0.1-1.0); MONOCYTES % (AUTO) 7.4 % (3.0-13.0); NEUTROPHILS # (AUTO) 3.3 K/uL (1.8-7.7); NEUTROPHILS % (AUTO) 61.8 % (40.0-77.0); PLATELET COUNT (AUTO) 172 K/uL (130-400); RED BLOOD CELL COUNT(AUTO) 4.19 MIL/uL (4.50-6.20); RED CELL DISTRIBUTION WIDTH 13.1 % (11.0-15.5); WHITE BLOOD COUNT (AUTO) 5.3 K/uL (4.8-10.8)
[2024-02-02 10:45] LABS: CREATININE 1.7 mg/dL (0.5-1.3); POTASSIUM 4.1 mmol/L (3.5-5.1)
[2024-02-02 10:50] LABS: ALBUMIN 3.6 g/dL (3.5-5.0); BILIRUBIN,TOTAL 0.8 mg/dL (0.2-1.0); TOTAL PROTEIN, SERUM 6.6 g/dL (6.0-8.3)
[2024-02-02 12:00] VITALS: BP 149/62; PULSE 60; RESP 17; TEMP 97.6
[2024-02-02] MEDS ORDERED: hydrALAZine 25MG TABLET PO SCH (14:00)
[2024-02-02 16:00] VITALS: BP 155/74; PULSE 64; RESP 18; TEMP 97.6
[2024-02-02] MEDS ORDERED: AMLO-257 PO (17:46)
[2024-02-02] MEDS ORDERED: AEC81 PO (17:46)
[2024-02-02] MEDS ORDERED: ATOR40TA69 PO (17:47)
[2024-02-02] MEDS ORDERED: CYAN50005 PO (17:48)
[2024-02-02] MEDS ORDERED: DAPA10TA PO (17:48)
[2024-02-02] MEDS ORDERED: FERS325 PO (17:49)
[2024-02-02] MEDS ORDERED: HYDR25TA67 PO (17:50)
[2024-02-02] MEDS ORDERED: LINA5TAB PO (17:50)
[2024-02-02] MEDS ORDERED: LOSA100T59 PO (17:50)
[2024-02-02] MEDS ORDERED: METO50TA18 PO (17:51)
[2024-02-02] MEDS ORDERED: TRAZ-187 PO (17:51)
[2024-02-02] MEDS ORDERED: TRAZ-185 PO (17:51)
[2024-02-02] MEDS ORDERED: amLODIPine 5 MG TAB PO SCH (21:00)
[2024-02-02] MEDS ORDERED: metoPROLOL tartRATE 50 MG TAB PO SCH (21:00)
[2024-02-03] MEDS ORDERED: ASPIRIN 81 MG EC TAB PO SCH (09:00)
[2024-02-03] MEDS ORDERED: LoSARTan 100 MG TABLET PO SCH (09:00)
== END 2024-02-02 18:04 | disposition home or self-care (01) ==
LOC: EDH 08:48 → EDHIP 12:59 → INTOOBSV 12:59 → 3DH 14:15
PROVIDERS: ADMIT Internal Medicine; ATTEND Internal Medicine
DX: R55 Syncope and collapse (principal); R42 Dizziness and giddiness; R20.0 Anesthesia of skin; I12.9 Hypertensive chronic kidney disease with stage 1 through stage 4 chronic kidney disease, or unspecified chronic kidney disease; E11.22 Type 2 diabetes mellitus with diabetic chronic kidney disease; N18.30 Chronic kidney disease, stage 3 unspecified; E11.649 Type 2 diabetes mellitus with hypoglycemia without coma; G45.9 Transient cerebral ischemic attack, unspecified; I49.9 Cardiac arrhythmia, unspecified; I95.2 Hypotension due to drugs; R60.0 Localized edema; E78.5 Hyperlipidemia, unspecified; Z95.0 Presence of cardiac pacemaker; Z88.8 Allergy status to other drugs, medicaments and biological substances; Z86.73 Personal history of transient ischemic attack (TIA), and cerebral infarction without residual deficits; Z79.82 Long term (current) use of aspirin; Z79.899 Other long term (current) drug therapy
CPT/HCPCS: 96374; 96361 ×2; 99285; 83036; 84443; 84484 ×2; 80048 ×2; 85027; 85610; 85730; 82948 ×9; 86140; 81001; 36415 ×3; 71045; 70450; 93880; 93005; 84145; 96376 ×2; 85025 ×2; 93306; 93356; 80053; 97161; 97116; J3490 ×3; J1815; G0378 ×4; 96372; G8980-CI; G8983-CI

== ENCOUNTER 2025-06-01 01:30 | Observation (INO) | payer OTHER, MEDICAID ==
[~2025-06-01] VITALS: Ht 180.3 cm; Wt 76.7 kg
[~2025-06-01 01:30] MED LIST changes: +ATOR40TA69 PO; -ATOR40TA71 PO; +CYAN50005 PO; -CYAN50009 PO; +DAPA10TA PO; -FERR-82 PO; +FERS325 PO; +TRAZ-187 PO
--- NOTE | 2025-06-01 01:58 | EKG ---
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
--- NOTE | 2025-06-01 01:58 | ERN ---
ED Note History of Present Illness Stated Complaint: syncope Chief Complaint: Syncope Time Seen by MD: 01:41 Dictation: This is a 75-year-old male who presented to the emergency room via EMS and his spouse for evaluation of syncope. Apparently he went to bed as usual and woke up to use the restroom when on his way he passed out and fell sustaining an injury to the head on the left side. He woke up immediately and the activated EMS. While EN route he had a transient episode of passing out per EMS. No tonic-clonic seizure activity. Patient has no history of seizures. No bladder or bowel incontinence. No chest pain palpitations PND orthopnea. Patient did state that he got up and immediately started walking towards the bathroom He has chronic hearing loss and wears hearing aids. History of any tinnitus. Temperature 98.6 pulse 60 respirations 18 blood pressure 133/65 with a pulse oximetry of 98% on room air Chronic medical problems include cerebrovascular accident in 2009, hypertension, diabetes mellitus, arrhythmia status post pacemaker, chronic kidney disease history of syncope and collapse and postural dizziness Allergies: Coded Allergies: hydrocodone (Verified Allergy, Unknown, 03/12/21) Home Meds Reported Medications Trazodone HCl (Trazodone HCl) 100 Mg Tablet, 100 MG PO DAILYDINNER, TAB 02/02/24 Trazodone HCl (Trazodone HCl) 50 Mg Tablet, 50 MG PO BID, TAB 24 Metoprolol Tartrate (Metoprolol Tartrate) 50 Mg Tablet, 50 MG PO BID, TAB 24 Losartan Potassium (Losartan Potassium) 100 Mg Tablet, 100 MG PO DAILY, TAB 24 Linagliptin (Tradjenta) 5 Mg Tablet, 5 MG PO DAILY, TAB 24 Hydralazine HCl (Hydralazine HCl) 25 Mg Tablet, 25 MG PO TID, TAB 24 Ferrous Sulfate (Ferrous Sulfate) 325 Mg (65 Mg Iron) Ectab, 325 MG PO DAILY, TAB.EC 02/02/24 Dapagliflozin Propanediol (Farxiga) 10 Mg Tablet, 10 MG PO DAILY, TAB 24 Cyanocobalamin (Vitamin B-12) (B-12) 5,000 Mcg Tab.rapdis, 5000 MCG PO DAILY, TAB 24 Atorvastatin Calcium (LIPITOR) 40 Mg Tablet, 40 MG PO DAILY, TAB 02/02/24 Aspirin (ASPIRIN 81 MG ECTAB) 81 Mg Ectab, 81 MG PO DAILY, TAB.EC 02/02/24 Amlodipine Besylate (Amlodipine Besylate) 5 Mg Tablet, 5 MG PO BID, TAB 02/02/24 Past Medical History Past Medical History: Arrythmia, CVA, Diabetes-Type II, Hypertension, Renal Disese, Stroke Surgical History: Pacer/AICD, Other Surgical History Other: BILATERAL SHOULDER Family History: HTN Social History: Negative, Lives with family RN Note Reviewed/Agreed w/PFSH: Yes Review of System Dictation Constitutional: Negative for fever,chills, and weight loss Eyes: Negative for injury, pain,redness, and discharge ENT: Negative for injury,pain or swelling Cardiovascular: Negative for chest pain, palpitations, and edema syncope and collapse Respiratory: Negative for shortness of breath, cough, and wheezing, Abdomen/GI: Negative for abdominal pain, nausea, vomiting, diarrhea, and constipation Back: Negative for injury and pain : Negative for injury, bleeding and discharge MS/Extremity: Negative for injury and deformity Skin: Negative for rash, and discoloration Neuro: Negative for headache, weakness, numbness, tingling, and seizure fell and sustained closed head injury Psych: Negative for suicide ideation, homicidal ideation, and hallucinations Initial Vital Sign VS Vital Signs Date Time Temp Pulse Resp B/P (MAP) Pulse Ox O2 Delivery O2 Flow Rate FiO2 06/01/25 01:39 98.1 60 18 133/65 98 Room Air 06/01/25 01:39 0 21 Physical Exam Dictation General: awake, alert, NAD elderly male who is very frail Head/Face: Normocephalic, small hematoma in the left parietal area no open lacerations Eyes: PERRL, EOMI, vision at baseline ENT: oral cavity clear, TMs clear, no signs of infection Neck: Trachea midline, supple, no nuchal rigidity Cardiovascular: RRR, normal S1/S2, No MRGs, no JVD Respiratory: CTAB, no respiratory distress, No rales or wheezes Abdomen: Soft, non-tender, non-distended, normal bowel sounds, no guarding or rebound. Skin: Warm, dry, normal turgor, no rash MS/Extremity: Pulses equal, no cyanosis, neurovascular intact, FROM abrasion in the right elbow Neuro: COAx4, GCS 15, strength 5/5, CN 2-12 intact, normal cerebellar exam, I did not test his gait Psych: Normal behavior, mood, and affect normal Extremities-trace edema without any palpable cords, Homans sign is negative Results (Laboratory/Radiology) Laboratory/Radiology Laboratory Tests Test 06/01/25 01:57 06/01/25 03:12 White Blood Count 6.8 K/uL (4.8-10.8) Red Blood Count 4.28 MIL/uL (4.50-6.20) L Hemoglobin 13.0 g/dL (14.0-18.0) L Hematocrit 38.9 % (42-54) L Mean Corpuscular Volume 90.9 fL (79-99) Mean Corpuscular Hemoglobin 30.4 pg (27.0-33.0) Mean Corpuscular Hemoglobin Concent 33.4 g/dL (32.0-36.0) Red Cell Distribution Width 13.4 % (11.0-15.5) Platelet Count 164 K/uL (130-400) Mean Platelet Volume 9.8 fL (7.5-10.5) Immature Granulocyte % (Auto) 0.1 % (0-1) Neutrophils (%) (Auto) 59.3 % (40.0-77.0) Lymphocytes (%) (Auto) 26.7 % (21.0-51.0) Monocytes (%) (Auto) 8.7 % (3.0-13.0) Eosinophils (%) (Auto) 4.6 % (0.0-8.0) Basophils (%) (Auto) 0.6 % (0.0-5.0) Neutrophils # (Auto) 4.0 K/uL (1.8-7.7) Lymphocytes # (Auto) 1.8 K/uL (1.0-4.8) Monocytes # (Auto) 0.6 K/uL (0.1-1.0) Eosinophils # (Auto) 0.31 K/uL (0.00-0.70) Basophils # (Auto) 0.04 K/uL (0.00-0.20) Absolute Immature Granulocyte (auto 0.01 K/uL (0-1) Nucleated Red Blood Cells 0.0 % (0.0-0.19) Sodium Level 137 mmol/L (136-145) Potassium Level 4.2 mmol/L (3.5-5.1) Chloride Level 106 mmol/L (101-111) Carbon Dioxide Level 25 mmol/L (21-32) Blood Urea Nitrogen 30 mg/dL (7-18) H Creatinine 1.8 mg/dL (0.5-1.3) H Glomerular Filtration Rate Calc 39 mL/min (>90) Random Glucose 93 mg/dL (70-105) Total Calcium 8.5 mg/dL (8.5-10.1) Total Creatine Kinase 82 U/L (21-232) Troponin I High Sensitivity 13.1 ng/L (4-75) Urine Color LIGHT-YELLOW (YELLOW) Urine Appearance CLEAR (CLEAR) Urine pH 5.5 (5.0-8.0) Urine Specific [place] 1.008 (1.001-1.031) Urine Protein NEGATIVE mg/dL (NEGATIVE) Urine Glucose (UA) >=1000 mg/dL (NEGATIVE) H Urine Ketones NEGATIVE mg/dL (NEGATIVE) Urine Occult Blood NEGATIVE (NEGATIVE) Urine Nitrate NEGATIVE (NEGATIVE) Urine Bilirubin NEGATIVE mg/dL (NEGATIVE) Urine Urobilinogen 0.2 mg/dL (0.2-1.0) Urine Leukocyte Esterase NEGATIVE [place]/uL Urine RBC None /HPF (0-1) Urine WBC 0-1 /HPF (0-1) Urine Bacteria None /HPF (None Seen) Labs Reviewed?: Yes EKG Comment: Twelve lead EKG done on 06/01/2025 at 1:56 a.m. shows a heart rate of 60, NM interval 193, QRS duration 159, QT/QTC 475/475 Impression normal sinus rhythm left bundle branch block with sinus bradycardia. No acute ST-T changes noted EKG rhythm strip shows a normal sinus rhythm with left bundle branch block nonspecific changes. Comparison to the old EKGs done on 01/31/2024 there are no new changes noted. Interpreted by ER MD Dr. Keating X-RAY Comment: REASON: SYNCOPE ORDERING PHYSICIAN: ADALID KEATING MD PROCEDURE: CXR1VW - CHEST 1VW EXAM: CR Chest, 1 View. CLINICAL HISTORY: SYNCOPE COMPARISON: None provided. FINDINGS: LUNGS: The lungs show no infiltrate or other acute finding. PLEURAL SPACES: No evidence of pleural effusion or pneumothorax. MEDIASTINUM: The cardiomediastinal silhouette is within normal limits. BONES: No acute osseous abnormality. IMPRESSION: No acute cardiopulmonary pathology is evident. Well-placed cardiac pacemaker over the left chest wall, cardiac leads or superimposed over the atrium and ventricle chambers respectively. /[place] DICTATED BY: MIGUEL JAMES Jr., MD DATE: 06/01/25400 ELECTRONICALLY SIGNED BY: MIGUEL JAMES Jr., MD DATE: 06/01/25400 CT Scan Comment: REASON: fall with head injury hematoma left parietal area. ORDERING PHYSICIAN: ADALID KEATING MD PROCEDURE: HEAD WO - CT HEAD/BRAIN W/O CONTRAST EXAM: Non-contrast CT examination of the Brain CLINICAL HISTORY: Fall. TECHNIQUE: Thin collimated axial CT images of the brain were obtained, with sagittal and coronal reformatted images also submitted. A CT scan is done according to ALARA (As Low as Reasonably Achievable). CONTRAST USED: None. COMPARISON: CT brain dated 01/31/2024. FINDINGS: No acute intracranial abnormality is present. No acute cortical infarction, hemorrhage, mass, or mass effect. Mild to moderate generalized brain atrophy and chronic microvascular ischemic white matter disease. Calcific atherosclerotic disease in the intracranial ICA and vertebral arteries. There is a 3 x 2 x 2 cm focal CSF density lesion in the left occipital region, which could be a focal encephalomalacia or an arachnoid cyst. No hydrocephalus or abnormal extra-axial fluid collections. The posterior fossa is unremarkable. The skull base and calvarium are intact. The included portions of the paranasal sinuses and mastoid air cells are clear. IMPRESSION: No acute intracranial abnormality is present. Mild to moderate generalized brain atrophy and chronic microvascular ischemic white matter disease. There is a 3 x 2 x 2 cm focal CSF density lesion in the left occipital region, which could be a focal encephalomalacia or an arachnoid cyst. Compared to the prior study, there is no significant interval change. /[place] DICTATED BY: MIGUEL JAMES Jr., MD DATE: 06/01/25412 ELECTRONICALLY SIGNED BY: MIGUEL JAMES Jr., MD DATE: 06/01/25 0413 ED Course ED Course Orders Procedure Category Date Status Time Cbc With Differential LAB 06/01/25 Complete 01:44 Cardiac Panel LAB 06/01/25 Complete 01:44 Urinalysis Profile LAB 06/01/25 Complete 01:44 Chest 1vw RAD 06/01/25 Resulted 01:44 12 Lead Ekg Tracing- EKG 06/01/25 Complete Technical 01:44 0.9%Nacl 1000ml (Ns PHA 06/01/25 In Process 1000ml) 02:00 Basic Metabolic Panel LAB 06/01/25 Complete 01:44 Ct Head/Brain W/O CT 06/01/25 Resulted Contrast 01:57 Current Medications Medications (Trade) Dose Ordered Sig/Lindsay Route PRN Reason Start Time Stop Time Status Last Admin Dose Admin Sodium Chloride 1,000 ml @ 125 mls/hr ONCE ONCE IV 06/01/25 02:00 06/01/25 09:59 06/01/25 02:01 Vital Signs Date Time Temp Pulse Resp B/P (MAP) Pulse Ox O2 Delivery O2 Flow Rate FiO2 06/01/25 03:17 60 18 139/62 98 Room Air* 0 06/01/25 02:28 60 18 136/58 99 Room Air* 0 06/01/25 01:39 98.6 60 18 133/65 98 Room Air* 0 06/01/25 01:39 98.1 60 18 133/65 98 Room Air Medical Decision Making MDM Differential diagnosis: Coronary event, conduction system disease, Benign positional vertigo, labyrinthitis, Meniere's disease, vertebrobasilar insufficiency, aortic stenosis, arrhythmia, volume depletion This is a 75-year-old male who presented to the emergency room via EMS and his spouse for evaluation of syncope. Apparently he went to bed as usual and woke up to use the restroom when on his way he passed out and fell sustaining an injury to the head on the left side. He woke up immediately and the activated EMS. While EN route he had a transient episode of passing out per EMS. No tonic-clonic seizure activity. Patient has no history of seizures. No bladder or bowel incontinence. No chest pain palpitations PND orthopnea. Patient did state that he got up and immediately started walking towards the bathroom He has chronic hearing loss and wears hearing aids. History of any tinnitus. Temperature 98.6 pulse 60 respirations 18 blood pressure 133/65 with a pulse oximetry of 98% on room air Chronic medical problems include cerebrovascular accident in 2010, hypertension, diabetes mellitus, arrhythmia status post pacemaker, chronic kidney disease history of syncope and collapse and postural dizziness 3:35 a.m. labs reviewed CBC is with a normal limits BNP 7 showed a BUN and creatinine of 30 and 1.8. Urinalysis is unremarkable. Chest x-ray no new changes were noted. CT scan of the head without contrast did not show any depressed skull fractures or intracranial hemorrhage. You changes noted. I updated the patient and spouse on labs radiology and my concerns of the syncope and collapse and he needs to be monitored in the hospital. Agreeable 4:00 a.m. patient accepted by [facility] mid-level provider for [facility] hospitalist group for admission and further management Rationale: Tests considered and ordered secondary to shared decision making include: labs, ECG and radiology Previous outside records reviewed: Old ER visits. Risk of complication and/or morbidity or mortality of patient management: None Medications-Per medication reconciliation Need for hospitalization: Patient does meet criteria for hospitalization. Need for emergency major/minor surgery: No There are no social concerns with this patient. Prescription drug management Prescriptions will include symptomatic care Patient's prior external medical records from other ER visits were reviewed by me as indicated. Prior testing and results from previous visits were reviewed. Prior tests were taken into account with medical decision making and resource utilization, independent historian/historians were used to obtain complete medical history. I independently interpreted the test that were performed, results were reviewed by me and considered findings on radiology if ordered. Medical management and examination interpretation discussions were had by me with other qualified healthcare professionals as indicated for the patient's care. Problem List Problem List: (1) Postural dizziness with near syncope (2) Cardiac arrhythmia (3) History of stroke (4) Type 1 diabetes mellitus (5) Essential hypertension DX & DISP Disposition: Inpatient Decision to Admit Time: 03:34 Departure Impression: Primary Impression: Postural dizziness with near syncope Additional Impressions: Cardiac arrhythmia, History of stroke, Type 1 diabetes mellitus, Essential hypertension Condition: Stable Additional Instructions: Patient was informed of all the diagnostic labs and procedures conducted in the emergency room today and demonstrated understanding of the results. I personally reviewed and interpreted all the diagnostic exams performed in the ER today. The patient will be admitted to the hospital for further treatment and evaluation. Disposition-admit to facility Condition-stable/guarded Course-uncertain at this time Pain status-decreased Assessment-exam unchanged Admission Certification- I certify that the patients status is appropriate and is based on my best clinical judgment and the patient's condition as documented in the medical records Referrals: KERRY LEDBETTER MD (PCP) ADALID KEATING MD Jun 01, 2025 01:58
[2025-06-01] MEDS: 0.9%NACL 1000ML 1,000 ML IV ONE (02:01)
[2025-06-01 02:06] LABS: IMMATURE GRANULOCYTE ABSOLUTE 0.01 K/uL (0-1); NUCLEATED RED BLOOD CELLS 0.0 % (0.0-0.19); PLATELET COUNT (AUTO) 164 K/uL (130-400); RED BLOOD CELL COUNT(AUTO) 4.28 MIL/uL (4.50-6.20); RED CELL DISTRIBUTION WIDTH 13.4 % (11.0-15.5); WHITE BLOOD COUNT (AUTO) 6.8 K/uL (4.8-10.8)
[2025-06-01 02:16] LABS: CREATININE 1.8 mg/dL (0.5-1.3); GLOMERULAR FILTR. RATE CALC 39.0 mL/min (>90); GLUCOSE,RANDOM 93.0 mg/dL (70-105); SODIUM SERUM 137.0 mmol/L (136-145); UREA NITROGEN, BLOOD 30.0 mg/dL (7-18)
[2025-06-01 02:23] LABS: CREATINE KINASE, TOTAL 82.0 U/L (21-232)
--- NOTE | 2025-06-01 03:03 | HMCIMG ---
EXAM: CR Chest, 1 View. CLINICAL HISTORY: SYNCOPE COMPARISON: None provided. FINDINGS: LUNGS: The lungs show no infiltrate or other acute finding. PLEURAL SPACES: No evidence of pleural effusion or pneumothorax. MEDIASTINUM: The cardiomediastinal silhouette is within normal limits. BONES: No acute osseous abnormality. IMPRESSION: No acute cardiopulmonary pathology is evident. Well-placed cardiac pacemaker over the left chest wall, cardiac leads or superimposed over the atrium and ventricle chambers respectively. /[place]
--- NOTE | 2025-06-01 03:13 | HMCIMG ---
EXAM: Non-contrast CT examination of the Brain CLINICAL HISTORY: Fall. TECHNIQUE: Thin collimated axial CT images of the brain were obtained, with sagittal and coronal reformatted images also submitted. A CT scan is done according to ALARA (As Low as Reasonably Achievable). CONTRAST USED: None. COMPARISON: CT brain dated 01/31/2024. FINDINGS: No acute intracranial abnormality is present. No acute cortical infarction, hemorrhage, mass, or mass effect. Mild to moderate generalized brain atrophy and chronic microvascular ischemic white matter disease. Calcific atherosclerotic disease in the intracranial ICA and vertebral arteries. There is a 3 x 2 x 2 cm focal CSF density lesion in the left occipital region, which could be a focal encephalomalacia or an arachnoid cyst. No hydrocephalus or abnormal extra-axial fluid collections. The posterior fossa is unremarkable. The skull base and calvarium are intact. The included portions of the paranasal sinuses and mastoid air cells are clear. IMPRESSION: No acute intracranial abnormality is present. Mild to moderate generalized brain atrophy and chronic microvascular ischemic white matter disease. There is a 3 x 2 x 2 cm focal CSF density lesion in the left occipital region, which could be a focal encephalomalacia or an arachnoid cyst. Compared to the prior study, there is no significant interval change. /[place]
[2025-06-01 03:26] LABS: APPEARANCE,URINE CLEAR (CLEAR); GLUCOSE, URINE (UA) >=1000 mg/dL (NEGATIVE); LEUKOCYTE ESTERASE ,URINE NEGATIVE Leu/uL (NEGATIVE); NITRATE,URINE NEGATIVE (NEGATIVE); OCCULT BLOOD,URINE NEGATIVE (NEGATIVE)
[2025-06-01 03:27] LABS: ADD UA MICROSCOPIC YES
--- NOTE | 2025-06-01 04:16 | NUR ---
[facility] [employer] SPECIALIST AT BEDSIDE.
--- NOTE | 2025-06-01 04:31 | HP ---
[facility] PH[facility] Date of Service: Jun 01, 2025 Time of Service: 04:31 PCP: Kody Partida HISTORY OF PRESENT ILLNESS: This is a 75-year-old male with past medical history of Diabetes type 2,CVA with right sided weakness ,hypertension, hyperlipidemia, Cardiac permanent pacemaker, chronic kidney disease stage three who was brought by EMS to the Ed for evaluation of syncope following a fall incident at home.Patient reports he was in bed and he woke up to use the restroom ,on his way to the restroom he sanchez ddenly felt dizzy and his legs gave out and he fell towards his left side hitting his head and he woke up immediately and walked towards the restroom and had called the ambulance. While en route patient had another episode of near syncopal episode per EMS report.Patient states he is taking baby aspirin 81 mg and last dose was yesterday morning.No reported seizure activity,bowel bladder incontinence or tongue biting.Patient had similar episode where he was admitted for syncope and dizziness on 01/31/2024 in this facility.Patient states his repair operator is . Seen and examined patient in the ER awake,alert and coherent,moving all extremities.Patient reports he has chronic hearing loss and he wears hearing aids and he had also tinnitus.Patient denies headache,nausea,vomiting,chest pain,palpitation and shortness of breath. Latest vital signs temperature 98.6, heart rate 60, blood pressure 132/60 saturation 98% on room air. Labs: Hemoglobin 13, hematocrit 38, platelet count 164. BUN 30, creatinine 1.8 GFR 39 13. 1000 Urinalysis is remarkable for urine glucose above [address] head without contrast result revealed no acute intracranial abnormality is present. [id number] generalized brain atrophy and chronic microvascular ischemic white matter disease. Is a 3 x 2 x 2 cm focal CSF density lesion in the left occipital region, which could be a focal encephalomalacia Albin cyst. Chest x-ray result revealed no acute cardiopulmonary pathology is evident we will place cardiac pacemaker over the left chest wall cardiac leads are superimposed over the atrium and ventricle chambers respectively. We will admit patient for further medical management. REVIEW OF SYSTEMS CONSTITUTIONAL: Denies fevers, chills, or night sweats. No unintentional weight loss reported. NEUROLOGICAL:+dizziness and syncope Denies headache, amaurosis fugax, motor weakness and tremors. ENT: + hearing loss Denies otalgia, otorrhea, rhinitis, rhinorrhea, hoarseness, or sore throat. CARDIOVASCULAR: Denies any exertional angina, dyspnea on exertion, orthopnea, paroxysmal nocturnal dyspnea, palpitations, life-threatening arrhythmias, claudication. PULMONARY: Denies any shortness of breath, cough, phlegm/sputum, hemoptysis, pleuritic chest pain. SLEEP: Denies morning headaches, daytime somnolence or napping. Denies difficulty falling asleep, staying asleep, waking from sleep. Denies knowledge of snoring. GASTROINTESTINAL: Denies any type of dysphagia to either liquids or solids. Denies nausea, vomiting, pyrosis, early satiety, abdominal pain, diarrhea, constipation, or changes in stool consistency or caliber. Denies coffee-ground emesis, hematemesis, hematochezia, or melanotic stools. GENITOURINARY: Denies frequency, urgency, nocturia, hematuria or incontinence (Storage/Irritative symptoms.) Low urinary stream, straining to void, urinary intermittency or hesitancy, splitting of the voiding stream, terminal dribbling. ENDOCRINOLOGIC: Denies polyuria, polydipsia, polyphagia or heat/cold intolerances. HEMATOLOGIC: Denies thrombophilia/previous clots, or coagulopathy/bleeding disorders. ONCOLOGIC: Denies personal history of malignancy. DERMATOLOGIC: Denies rashes or pruritus. PSYCHIATRIC: Denies any suicidal or homicidal ideation. Denies hallucinations. PAST MEDICAL HISTORY: [Diabetes type 2,CVA with right sided weakness ,hypertension, hyperlipidemia, Cardiac permanent pacemaker, chronic kidney disease stage three ] PAST SURGICAL HISTORY: [ PPM/AICD bilateral shoulder surgery,appendectomy cyst removal on his back of neck ] PAST SOCIAL HISTORY: [ Patient lives with .Patient denies alcohol,cigarette and recreational drug use] FAMILY HISTORY: [ Diabetes and cancer ] Coded Allergies: hydrocodone (Verified Allergy, Unknown, 03/12/21) PHYSICAL EXAM GENERAL APPEARANCE: The patient is awake, alert, and oriented, in no acute cardiopulmonary distress. NEUROLOGICAL: CVA with right sided weakness and chronic hard of hearing HEENT: Face is symmetric. Pupils are equal and reactive. Extraocular movements are intact. NECK: Supple. No JVD. No thyromegaly. No submental, submandibular, pre-/postauricular, occipital or supraclavicular lymphadenopathy. CHEST: Normal chest expansion. No Telemetry. LUNGS: Absence of any rales, rhonchi or any wheezing. CARDIOVASCULAR: Regular. S1 and S2 normal. No appreciable rubs, murmurs or gallops. ABDOMEN: Soft, nontender, and nondistended. There is no rebound, voluntary guarding, or rigidity. : Deferred. No [place]. EXTREMITIES: Non-edematous and not cyanotic. No clubbing. Good capillary refill. SKIN: No skin breakdown. Vital Sign (Last 24 Hours) 06/01/25 06/01/25 01:39 04:24 Temp 98.6 Pulse 60 Resp 18 B/P (MAP) 132/60 Pulse Ox 98 O2 Delivery Room Air* O2 Flow Rate 0 FiO2 21 Intake & Output (last 24hrs) 05/31/25 05/31/25 06/01/25 15:00 23:00 07:00 Output Total 400 ml Balance -400 ml LABS: Laboratory: Test 06/01/25 03:12 06/01/25 01:57 Range/Units Urine Color LIGHT-YELLOW YELLOW Urine Appearance CLEAR CLEAR Urine pH 5.5 5.0-8.0 Urine Specific [place] 1.008 1.001-1.031 Urine Protein NEGATIVE NEGATIVE mg/dL Urine Glucose (UA) >=1000 H NEGATIVE mg/dL Urine Ketones NEGATIVE NEGATIVE mg/dL Urine Occult Blood NEGATIVE NEGATIVE Urine Nitrate NEGATIVE NEGATIVE Urine Bilirubin NEGATIVE NEGATIVE mg/dL Urine Urobilinogen 0.2 0.2-1.0 mg/dL Urine Leukocyte Esterase NEGATIVE NEGATIVE Catrina/uL Urine RBC None 0-1 /HPF Urine WBC 0-1 0-1 /HPF Urine Bacteria None None Seen /HPF White Blood Count 6.8 4.8-10.8 K/uL Red Blood Count 4.28 L 4.50-6.20 MIL/uL Hemoglobin 13.0 L 14.0-18.0 g/dL Hematocrit 38.9 L 42-54 % Mean Corpuscular Volume 90.9 79-99 fL Mean Corpuscular Hemoglobin 30.4 27.0-33.0 pg Mean Corpuscular Hemoglobin Concent 33.4 32.0-36.0 g/dL Red Cell Distribution Width 13.4 11.0-15.5 % Platelet Count 164 130-400 K/uL Mean Platelet Volume 9.8 7.5-10.5 fL Immature Granulocyte % (Auto) 0.1 0-1 % Neutrophils (%) (Auto) 59.3 40.0-77.0 % Lymphocytes (%) (Auto) 26.7 21.0-51.0 % Monocytes (%) (Auto) 8.7 3.0-13.0 % Eosinophils (%) (Auto) 4.6 0.0-8.0 % Basophils (%) (Auto) 0.6 0.0-5.0 % Neutrophils # (Auto) 4.0 1.8-7.7 K/uL Lymphocytes # (Auto) 1.8 1.0-4.8 K/uL Monocytes # (Auto) 0.6 0.1-1.0 K/uL Eosinophils # (Auto) 0.31 0.00-0.70 K/uL Basophils # (Auto) 0.04 0.00-0.20 K/uL Absolute Immature Granulocyte (auto 0.01 0-1 K/uL Nucleated Red Blood Cells 0.0 0.0-0.19 % Sodium Level 137 136-145 mmol/L Potassium Level 4.2 3.5-5.1 mmol/L Chloride Level 106 101-111 mmol/L Carbon Dioxide Level 25 21-32 mmol/L Blood Urea Nitrogen 30 H 7-18 mg/dL Creatinine 1.8 H 0.5-1.3 mg/dL Glomerular Filtration Rate Calc 39 >90 mL/min Random Glucose 93 70-105 mg/dL Total Calcium 8.5 8.5-10.1 mg/dL Total Creatine Kinase 82 21-232 U/L Troponin I High Sensitivity 13.1 4-75 ng/L DIAGNOSTICS / RADIOLOGY: [ ] ASSESSMENT: S/P Fall injury POA Closed head injury POA Postural dizziness with near syncope POA Acute on chronic kidney disease POA Chronic anemia POA Cardiac permanent pacemaker status POA Hypertension POA Hyperlipidemia POA Diabetes POA CVA with right-sided weakness POA PLAN: We will admit patient in medical telemetry We will start on heart healthy diet We will start NS @ 100 ml / hr x 1 bag and re evaluate We will start on famotidine 20 mg p.o. daily for GI prophylaxis We will replace electrolytes as needed per protocol We will start on insulin sliding scale AC & HS with hypoglycemia protocol We will add prn medication for fever,pain,cough , nausea and vomiting We will reconcile home meds once medlist available Neuro check q.4 hours per nursing and may consult tele neuro for any changes of LOC Fall precaution We will obtain carotid Doppler studies Orthostatic vital signs We will request for pacemaker to be interrogated We will request labs in am Further orders to follow depending on above results Case discussed with attending physician and came up with above treatment and plan of care. ADVANCED CARE PLANNING 1. Which of the following were discussed? Hospice Care - No Therapeutic options - Yes Advance Directives - No Other discussions - 2. Discussed with who? Patient 3. Voluntary nature of this service was explained to the patient? Yes 4. Amount of time spent - __24 min 5. Reviewed by Physician? (if this service was performed by NPP) Yes Patient seen and examined by me. Agree with note by SOLICITING FREIGHT AGENT SEE ADDITIONAL ORDERS PER CHART DISCUSSED WITH NURSING STAFF TRINY PRINCEP Jun 01, 2025 04:31
[2025-06-01] MEDS: 0.9%NACL 1000ML 1,000 ML IV SCH (05:09)
[2025-06-01] MEDS ORDERED: GLUCAGON 1MG KIT 1 MG ML IM PRN (05:30)
[2025-06-01] MEDS ORDERED: DEXTROSE 50%-WATER 50 ML DISP.SYRIN IV PRN (05:30)
--- NOTE | 2025-06-01 05:47 | HMCIMG ---
EXAMINATION: DUPLEX ULTRASOUND EXAMINATION OF THE BILATERAL CAROTID AND VERTEBRAL ARTERIES. CLINICAL HISTORY: Dizziness and syncope COMPARISON: US carotid duplex dated 01/31/2024. TECHNIQUE: Real-time ultrasound scan of the bilateral carotid and vertebral arteries, 2-D grayscale, with color Doppler flow and spectral waveform analysis. FINDINGS: Color and spectral Doppler interrogation of the carotid vessels on the right demonstrates peak systolic velocities as follows: CCA : 90 cm/s. ECA: 74 cm/s ICA: 68 cm/s. The vertebral artery demonstrates antegrade flow: 34 cm/s. Right ICA/CCA ratio: 0.8 Peak systolic velocities on the left are as follows: CCA: 115 cm/s. ECA: 96 cm/s. ICA: 57 cm/s . Vertebral artery demonstrates antegrade flow: 55 cm/s. Left ICA/CCA ratio: 0.5 IMPRESSION: Calcified plaques in the bilateral distal common carotids at the level of bifurcations. No hemodynamically significant stenosis by NASCET criteria within the bilateral carotid arteries. /[place]
[2025-06-01 07:13] LABS: IMMATURE GRANULOCYTE ABSOLUTE 0.03 K/uL (0-1); NUCLEATED RED BLOOD CELLS 0.0 % (0.0-0.19); PLATELET COUNT (AUTO) 179 K/uL (130-400); RED BLOOD CELL COUNT(AUTO) 4.32 MIL/uL (4.50-6.20); RED CELL DISTRIBUTION WIDTH 13.3 % (11.0-15.5); WHITE BLOOD COUNT (AUTO) 7.0 K/uL (4.8-10.8)
[2025-06-01 08:00] VITALS: BP 142/59; PULSE 59; RESP 20; TEMP 97.6; O2SAT 97
[2025-06-01 08:38] LABS: ASPARTATE AMINOTRANSFERASE 20.0 U/L (10-37); CREATININE 1.7 mg/dL (0.5-1.3); GLOMERULAR FILTR. RATE CALC 42.0 mL/min (>90); GLUCOSE,RANDOM 88.0 mg/dL (70-105); SODIUM SERUM 141.0 mmol/L (136-145); TOTAL PROTEIN, SERUM 6.4 g/dL (6.0-8.3); UREA NITROGEN, BLOOD 28.0 mg/dL (7-18)
[2025-06-01] MEDS: FAMOTIDINE 20MG TAB PO SCH (09:00)
--- NOTE | 2025-06-01 10:52 | NUR ---
DCP:HOME Pt currently lives at home with his . Pt uses a cane and walker at home to ambulate. Pt has a provider that works with him 29 hrs a week to assist with all ADLs, home management, and meals. PCP is Dr. Jaquan Gates and uses [facility] for any RX needs. At DC pt will want to go home and family can assist with transportation.
[2025-06-01 12:00] VITALS: BP 148/62; PULSE 60; RESP 20; TEMP 97.7
--- NOTE | 2025-06-01 13:53 | CONS ---
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 Cardiology has been consulted for syncope. The patient states he was walking to the bathroom when the room began to spin and his legs gave out which caused him to fall on the floor. He admits to lost consciousness for a few seconds. He denies urine or bowel elimination or postictal confusion. Blood pressure was checked by his who reported the reading to be 100/60 mmHg. He admitted to blood sugar of 55 increasing to 87 prior to walking. The patient has been taking losartan 100 mg daily, [id number] mg t.i.d., amlodipine 5 mg daily, and metoprolol tartrate 50 mg b.i.d. which have been held. He did receive one liter of NS and is currently on his second liter at 100ml/hr. Orthostatic vital signs were normal (see below.) EKG not available in the chart. Telemetry reported V-pacing with hr of 60bpm, with no events. Orthostatic vital signs on 06/01/2025: Supine 150/65 mmHg, HR 60 Sitting 156/69 mmHg, HR 61 back Standing 157/65 mmHg, HR 69 20 Past Medical History: As per HPI and summarized below Past Surgical History: Left shoulder surgery Appendectomy Cyst removed from 9 posterior neck Family History: The patient's mother was diagnosed with a cancer. Social History: The patient lives with his . Habits: The patient denies alcohol, tobacco, or illicit drug use. Home Meds: As per last visit at the [facility] on 02/10/2025: Farxiga 10 mg daily Trazodone 100 mg daily Losartan 100 mg daily [id number] mg daily Atorvastatin 40 mg daily Vitamin B12 100 mcg daily [id number] mg t.i.d. Amlodipine5 mg daily Metoprolol tartrate 50 mg b.i.d. Current Meds: Medications Dose Ordered Sig/Lindsay Start Time Stop Time Status Last Admin Acetaminophen 650 mg Q6H PRN 06/01/25 04:30 07/01/25 04:29 Acetaminophen 650 mg Q4H PRN 06/01/25 04:30 07/01/25 04:29 Ondansetron HCl 4 mg Q6H PRN 06/01/25 04:30 07/01/25 04:29 Famotidine 20 mg Q48H 06/01/25 09:00 07/01/25 08:59 06/01/25 09:00 Sodium Chloride 1,000 ml @ 100 mls/hr Q10H 06/01/25 04:30 07/01/25 04:29 06/01/25 05:09 Meclizine HCl 25 mg TID PRN 06/01/25 05:00 07/01/25 04:59 Insulin Human Regular INSULIN SLIDING SCAL... ACHS 06/01/25 07:30 07/01/25 07:29 Dextrose 50 ml AD PRN 06/01/25 05:30 07/01/25 05:29 Glucagon 1 mg AD PRN 06/01/25 05:30 07/01/25 05:29 Review of Systems: CONST: No fever, fatigue, or weight changes. EYES: No recent vision problems. ENT: No congestion, ear pain, or sore throat. C/V: No chest pain, palpitations, or edema. RESP: No cough, congestion, wheezing or shortness of breath. GI: No abdominal pain, nausea, vomiting, constipation, or diarrhea. : No incontinence or dysuria. SKIN: No rash. NEURO: No headache, focal numbness or weakness, dizziness, or seizures. PSYCH: No depression or anxiety. HEME: No abnormal bruising or bleeding. LYMPH: No swollen glands. Physical Examination: GENERAL: No acute distress. HEAD: Contusion noted to left lateral scalp. EYES: Conjunctiva and sclera normal. ENT: Hearing grossly intact, normal oropharynx. NECK: Supple without JVD. Normal carotid upstrokes without bruits. LUNGS: Clear breath sounds bilaterally. No wheezes, or rhonchi. HEART: Normal rate and rhythm. Normal S1 and S2 without murmurs, gallop or rub. VASC: Peripheral pulses +2 bilaterally. ABD: Bowel sounds normal, soft, nontender, no masses, no organomegaly. No audible bruits. : Not examined LYMPH: No lymphadenopathy noted. EXT: No clubbing, cyanosis or edema. SKIN: Skin tear to left knee, and right posterior forearm. NEURO: Awake, alert, and oriented x3. No focal sensory or strength deficits noted. Vital Signs (last 8hr) Date Time Temp Pulse Resp B/P (MAP) Pulse Ox O2 Delivery O2 Flow Rate FiO2 06/01/25 08:00 97 Room Air* 0 21 06/01/25 08:00 97.5 59 20 142/59 97 Room Air 06/01/25 06:55 98.4 60 18 126/62 98 Room Air* 0 21 06/01/25 05:42 60 18 119/61 97 Room Air* 0 21 Laboratory: Hematology Labs: Test 06/01/25 06:57 Range/Units White Blood Count 7.0 4.8-10.8 K/uL Red Blood Count 4.32 L 4.50-6.20 MIL/uL Hemoglobin 13.0 L 14.0-18.0 g/dL Hematocrit 39.6 L 42-54 % Mean Corpuscular Volume 91.7 79-99 fL Mean Corpuscular Hemoglobin 30.1 27.0-33.0 pg Mean Corpuscular Hemoglobin Concent 32.8 32.0-36.0 g/dL Red Cell Distribution Width 13.3 11.0-15.5 % Platelet Count 179 130-400 K/uL Mean Platelet Volume 9.7 7.5-10.5 fL Immature Granulocyte % (Auto) 0.4 0-1 % Neutrophils (%) (Auto) 59.6 40.0-77.0 % Lymphocytes (%) (Auto) 27.5 21.0-51.0 % Monocytes (%) (Auto) 9.3 3.0-13.0 % Eosinophils (%) (Auto) 2.6 0.0-8.0 % Basophils (%) (Auto) 0.6 0.0-5.0 % Neutrophils # (Auto) 4.2 1.8-7.7 K/uL Lymphocytes # (Auto) 1.9 1.0-4.8 K/uL Monocytes # (Auto) 0.7 0.1-1.0 K/uL Eosinophils # (Auto) 0.18 0.00-0.70 K/uL Basophils # (Auto) 0.04 0.00-0.20 K/uL Absolute Immature Granulocyte (auto 0.03 0-1 K/uL Nucleated Red Blood Cells 0.0 0.0-0.19 % Chemistry Labs: Test 06/01/25 11:51 06/01/25 06:57 06/01/25 01:57 Range/Units Whole Blood Glucose 112 H 70-110 MG/DL Sodium Level 141 136-145 mmol/L Potassium Level 5.4 H 3.5-5.1 mmol/L Chloride Level 110 101-111 mmol/L Carbon Dioxide Level 22 21-32 mmol/L Blood Urea Nitrogen 28 H 7-18 mg/dL Creatinine 1.7 H 0.5-1.3 mg/dL Glomerular Filtration Rate Calc 42 >90 mL/min Random Glucose 88 70-105 mg/dL Hemoglobin A1c 5.6 4.0-6.0 % Estimated Average Glucose (eAG) 114 70-126 mg/dL Total Calcium 8.7 8.5-10.1 mg/dL Magnesium Level 2.00 1.80-2.40 mg/dL Total Bilirubin 0.5 0.2-1.0 mg/dL Aspartate Amino Transf (AST/SGOT) 20 10-37 U/L Alanine Aminotransferase (ALT/SGPT) 24 12-78 U/L Alkaline Phosphatase 94 50-136 U/L Troponin I High Sensitivity 15 4-75 ng/L Total Protein 6.4 6.0-8.3 g/dL Albumin 3.6 3.5-5.0 g/dL Thyroid Stimulating Hormone (TSH) 1.33 # 0.36-3.74 uIU/mL Total Creatine Kinase 82 21-232 U/L Diagnostics / Radiology: Impression and Plan: Syncope Hypertension Hyperlipidemia Symptomatic bradycardia status post Biotronik PPM insertion Coronary calcium score 2450 in 07/31/2021 Negative Lexiscan stress test in 2021 CKD stage IIIA Hx of syncope 2D echo 02/01/2024 with an LVEF of 65-70% with stage I diastolic dysfunction Syncope Normal orthostatic vital signs 06/01/2025 Possible induced by hypoglycemia -Obtain device interrogation, pending 06/02 as per rep Velasquez -Repeat 2D Echocardiogram -Continuous telemetry monitoring Addendum: relates that she found him unresponsive and checked his blood sugar which was 55. She gave him some juice and sugar came up to 85. This may explain his syncopal spell however he had no prodrome of sweating on the other hand he may have been sleeping when this episode occurred. He is not orthostatic. We will have his device checked in the morning and if he has no a rrhythmias overnight he can complete further workup as an outpatient. ATTESTATION BY PHYSICIAN I have seen and examined the patient. I reviewed the documentation, medical decision making, and treatment plan as noted by the mid-level provider above. I agree with the findings and plan of care. CATARINA LUJAN MD, [facility] Jun 01, 2025 13:53 CATARINA LUJAN MD Jun 01, 2025 19:05
[2025-06-01 16:00] VITALS: BP 150/64; PULSE 58; RESP 20; TEMP 97.8
--- NOTE | 2025-06-01 18:34 | HMCSR ---
APPROVED REPORT EXAM: Two-dimensional and M-mode echocardiogram with Doppler and color Doppler. INDICATION ICD: Syncope 2D Dimensions RVDd 3.8 cm LVEF(%) 69.3 (>50%) LVED Vol(simp.) 132.0 mL IVSd 1.3 (0.7-1.1cm) FS(%) 39 % LVES Vol(simp.) 52.0 mL LVDd 4.5 (3.8-5.6cm) LA (2D) 4.0 (1.6-4.0cm) LVEF(%, simp.) 61 % PWd 1.3 (0.7-1.1cm) Ao Root(2D) 3.6 (2.0-3.7cm) LA ESV INDEX (BP) 30.31 mL/m2 LVDs 2.7 (2.5-4.0cm) LVOT diam 2.2 (1.8-2.4cm) IVC diam 1.1 cm Deformation Strain Apical 4 -15.9 % Apical 2 -17.6 % Apical 3 -18.7 % Global Strain -17.4 % M-Mode Dimensions EPSS 0.7 cm LA (MM) 4.1 (1.6-4.0cm) Ao Root(MM) 3.2 (2.0-3.7cm) Aortic Valve AoV Vmax 1.7 m/s Ao Peak GR 11.6 mmHg LVOT Vmax 1.0 m/s AoV VTI 0.4 m Ao Mean GR 5.6 mmHg LVOT VTI 0.27 m ANTIONE (VMAX) 2.33 cm2 ANTIONE (VTI) 3.0 cm2 Mitral Valve MV E Vmax 90.0 cm/s DECEL Time 271 ms MV A Vmax 108.6 cm/s P 1/2 T 86 ms E/A ratio 0.8 MVA (PHT) 2.6 cm2 TDI E/E' Medial 16.2 E/E' Lateral 13.2 Medial E' Peak V 5.56 cm/s Lateral E' Peak V 6.80 cm/s Pulmonary Valve PV Vmax 1.0 m/s PV VTI 0.21 m PV Mean GR 2.4 mmHg PV Peak GR 4.2 mmHg Left Ventricle The left ventricle is normal size. There is normal LV segmental wall motion. Mild left ventricular hypertrophy. LVEF is 60-65%. The left ventricular diastolic function is normal. Right Ventricle The right ventricle is normal size. The right ventricular systolic function is normal. Device lead is present in the right ventricle. Atria The left atrium size is normal. The right atrium size is normal. Aortic Valve The aortic valve is mildly thickened but opens well. No aortic regurgitation is present. There is no aortic valvular stenosis. Mitral Valve Mitral valve leaflets are moderately calcified. There is no evidence of significant mitral regurgitation. There is no mitral valve stenosis. Tricuspid Valve The tricuspid valve is normal in structure. There is no tricuspid valve regurgitation noted. Pulmonic Valve The pulmonary valve is normal in structure. There is no pulmonic valvular regurgitation. Great Vessels The aortic root is normal in size. The IVC is normal in size and collapses >50% with inspiration. Pericardium There is no pericardial effusion. Conclusion Mild left ventricular hypertrophy. LVEF is 60-65%. The aortic valve is mildly thickened but opens well. There is no aortic valvular stenosis. Device lead is present in the right ventricle.
[2025-06-01] MEDS ORDERED: TRAZ-187 PO (19:58)
[2025-06-01 20:00] VITALS: BP_SYST 145; BP_SYST 147; BP_SYST 157; BP_DIAS 68; BP_DIAS 71; BP_DIAS 75; PULSE 59; PULSE 60; RESP 16; TEMP 97.7
[2025-06-02] VITALS: BP 139/69; PULSE 60; RESP 20; TEMP 97.7
[2025-06-02 04:00] VITALS: BP 134/66; PULSE 60; RESP 20; TEMP 98
[2025-06-02 05:01] LABS: IMMATURE GRANULOCYTE ABSOLUTE 0.01 K/uL (0-1); NUCLEATED RED BLOOD CELLS 0.0 % (0.0-0.19); PLATELET COUNT (AUTO) 142 K/uL (130-400); RED BLOOD CELL COUNT(AUTO) 4.05 MIL/uL (4.50-6.20); RED CELL DISTRIBUTION WIDTH 13.3 % (11.0-15.5); WHITE BLOOD COUNT (AUTO) 5.8 K/uL (4.8-10.8)
[2025-06-02 05:12] LABS: CREATININE 1.5 mg/dL (0.5-1.3); GLOMERULAR FILTR. RATE CALC 48.0 mL/min (>90); GLUCOSE,RANDOM 83.0 mg/dL (70-105); SODIUM SERUM 140.0 mmol/L (136-145); UREA NITROGEN, BLOOD 19.0 mg/dL (7-18)
[2025-06-02 08:00] VITALS: BP 144/65; PULSE 59; RESP 20; TEMP 97.9
[2025-06-02] MEDS: (Dapagliflozin Propanediol (Farxiga) 10 MG) PO SCH (09:00)
[2025-06-02] MEDS: amLODIPine 5 MG TAB PO SCH (09:31)
[2025-06-02] MEDS: ASPIRIN 81 MG EC TAB PO SCH (09:31)
--- NOTE | 2025-06-02 09:56 | PN ---
Cardiology Progress Note Date of Service: 06/02/2025 Attending Generator Man: Dr. Viktor Arnold Primary Generator Man: Dr. Tim Arnett Reason for Consult: Syncope Vitals/Labs Vital Signs Date Time Temp Pulse Resp B/P (MAP) Pulse Ox O2 Delivery O2 Flow Rate FiO2 06/02/25 08:00 97.9 59 20 144/65 95 Room Air 06/01/25 20:00 0 21 Laboratory Tests 06/02/25 04:49 [facility] Jun 02, 2025 09:56
[2025-06-02 12:00] VITALS: BP_SYST 123; BP_SYST 138; BP_DIAS 60; PULSE 100; PULSE 60; RESP 20; TEMP 97.5; TEMP 97.6
--- NOTE | 2025-06-02 15:25 | DS ---
Discharge Summary Hospital Course Summary: The patient is a 75-year-old male with a history of type 2 diabetes mellitus, prior CVA with right-sided weakness, hypertension, hyperlipidemia, chronic kidney disease stage III, and permanent cardiac pacemaker who presented after a syncopal episode at home associated with dizziness and a fall with head impact. He experienced a second near-syncopal episode while en route to the hospital per EMS. There was no reported seizure activity, bowel or bladder incontinence, or tongue biting. On evaluation, the patient was awake, alert, and neurologically intact. Vital signs were stable. Laboratory studies were notable for chronic kidney disease at baseline; otherwise unremarkable. CT head showed no acute intracranial hemorrhage, with chronic changes only. Carotid ultrasound demonstrated no significant stenosis. Chest X-ray showed no acute cardiopulmonary process with pacemaker leads in appropriate position. Device interrogation did not reveal any significant arrhythmias. Orthostatic vitals were negative for orthostatic hypotension. Cardiac workup was completed. Echocardiogram demonstrated preserved left ventricular systolic function with an ejection fraction of 6065% and normal pacemaker lead position in the right ventricle. Cardiology evaluated the patient and found no acute cardiac etiology for syncope. Given negative neurologic and cardiac workup and clinical stability, the patient was deemed appropriate for discharge. 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 She gave him some juice and sugar came up to 85. This may explain his syncopal spell however he had no prodrome of sweating on the other hand he may have been sleeping when this episode occurred. He is not ortho static. We will have his device checked in the morning and if he has no arrhythmias overnight he can complete further workup as an outpatient. Procedure(s): [place] [id number] [place] [address] [id number] IMAGING REPORT Signed PATIENT: RENAE CHAPARRO MR#: [id number] : 1950 SEX: M AGE: 75 LOCATION: ED ORDER 4 STATUS: REG ER REPORT#: [id number] SERVICE 3 REASON: SYNCOPE ORDERING PHYSICIAN: ADALID KEATING MD PROCEDURE: CXR1VW - CHEST 1VW EXAM: CR Chest, 1 View. CLINICAL HISTORY: SYNCOPE COMPARISON: None provided. FINDINGS: LUNGS: The lungs show no infiltrate or other acute finding. PLEURAL SPACES: No evidence of pleural effusion or pneumothorax. MEDIASTINUM: The cardiomediastinal silhouette is within normal limits. BONES: No acute osseous abnormality. IMPRESSION: No acute cardiopulmonary pathology is evident. Well-placed cardiac pacemaker over the left chest wall, cardiac leads or superimposed over the atrium and ventricle chambers respectively. /Roe DICTATED BY: MIGUEL JAMES Jr., MD DATE: 06/01/25400 ELECTRONICALLY SIGNED BY: MIGUEL JAMES Jr., MD DATE: 06/01/25400 [place] [address] IMAGING REPORT Signed PATIENT: RENAE CHAPARRO MR#: [id number] : 1950 SEX: M AGE: 75 LOCATION: ED ORDER 7 STATUS: REG ER REPORT#: [id number] SERVICE 6 REASON: fall with head injury hematoma left parietal area. ORDERING PHYSICIAN: ADALID KEATING MD PROCEDURE: HEAD WO - CT HEAD/BRAIN W/O CONTRAST EXAM: Non-contrast CT examination of the Brain CLINICAL HISTORY: Fall. TECHNIQUE: Thin collimated axial CT images of the brain were obtained, with sagittal and coronal reformatted images also submitted. A CT scan is done according to ALARA (As Low as Reasonably Achievable). CONTRAST USED: None. COMPARISON: CT brain dated 01/31/2024. FINDINGS: No acute intracranial abnormality is present. No acute cortical infarction, hemorrhage, mass, or mass effect. Mild to moderate generalized brain atrophy and chronic microvascular ischemic white matter disease. Calcific atherosclerotic disease in the intracranial ICA and vertebral arteries. There is a 3 x 2 x 2 cm focal CSF density lesion in the left occipital region, which could be a focal encephalomalacia or an arachnoid cyst. No hydrocephalus or abnormal extra-axial fluid collections. The posterior fossa is unremarkable. The skull base and calvarium are intact. The included portions of the paranasal sinuses and mastoid air cells are clear. IMPRESSION: No acute intracranial abnormality is present. Mild to moderate generalized brain atrophy and chronic microvascular ischemic white matter disease. There is a 3 x 2 x 2 cm focal CSF density lesion in the left occipital region, which could be a focal encephalomalacia or an arachnoid cyst. Compared to the prior study, there is no significant interval change. /Roe DICTATED BY: MIGUEL JAMES Jr., MD DATE: 06/01/25412 ELECTRONICALLY SIGNED BY: MIGUEL JAMES Jr., MD DATE: 06/01/25412 [place] [address] IMAGING REPORT Signed PATIENT: RENAE CHAPARRO MR#: [id number] : 1950 SEX: M AGE: 75 LOCATION: EDHIP ORDER 0 STATUS: ADM IN REPORT#: [id number] SERVICE 2 REASON: dizziness andneasyncope ORDERING PHYSICIAN: TRINY PRINCE PROCEDURE: CAROTID - US CAROTID DUPLEX EXAMINATION: DUPLEX ULTRASOUND EXAMINATION OF THE BILATERAL CAROTID AND VERTEBRAL ARTERIES. CLINICAL HISTORY: Dizziness and syncope COMPARISON: US carotid duplex dated 01/31/2024. TECHNIQUE: Real-time ultrasound scan of the bilateral carotid and vertebral arteries, 2-D grayscale, with color Doppler flow and spectral waveform analysis. FINDINGS: Color and spectral Doppler interrogation of the carotid vessels on the right demonstrates peak systolic velocities as follows: CCA : 90 cm/s. ECA: 74 cm/s ICA: 68 cm/s. The vertebral artery demonstrates antegrade flow: 34 cm/s. Right ICA/CCA ratio: 0.8 Peak systolic velocities on the left are as follows: CCA: 115 cm/s. ECA: 96 cm/s. ICA: 57 cm/s . Vertebral artery demonstrates antegrade flow: 55 cm/s. Left ICA/CCA ratio: 0.5 IMPRESSION: Calcified plaques in the bilateral distal common carotids at the level of bifurcations. No hemodynamically significant stenosis by NASCET criteria within the bilateral carotid arteries. /Roe DICTATED BY: MIGUEL JAMES Jr., MD DATE: 06/01/25645 ELECTRONICALLY SIGNED BY: MIGUEL JAMES Jr., MD DATE: 06/01/25645 [place] [address] IMAGING REPORT Signed PATIENT: RENAE CHAPARRO MR#: [id number] : 1950 SEX: M AGE: 75 LOCATION: [facility] ORDER 1351 STATUS: ADM IN REPORT#: [id number] SERVICE 1303 REASON: SYNCOPE ORDERING PHYSICIAN: KODY GAMBLE PROCEDURE: ECHO CMP - ECHO 2-D COMPLETE APPROVED REPORT EXAM: Two-dimensional and M-mode echocardiogram with Doppler and color Doppler. INDICATION ICD: Syncope 2D Dimensions RVDd 3.8 cm LVEF(%) 69.3 (>50%) LVED Vol(simp.) 132.0 mL IVSd 1.3 (0.7-1.1cm) FS(%) 39 % LVES Vol(simp.) 52.0 mL LVDd 4.5 (3.8-5.6cm) LA (2D) 4.0 (1.6-4.0cm) LVEF(%, simp.) 61 % PWd 1.3 (0.7-1.1cm) Ao Root(2D) 3.6 (2.0-3.7cm) LA ESV INDEX (BP) 30.31 mL/m2 LVDs 2.7 (2.5-4.0cm) LVOT diam 2.2 (1.8-2.4cm) IVC diam 1.1 cm Deformation Strain Apical 4 -15.9 % Apical 2 -17.6 % Apical 3 -18.7 % Global Strain -17.4 % M-Mode Dimensions EPSS 0.7 cm LA (MM) 4.1 (1.6-4.0cm) Ao Root(MM) 3.2 (2.0-3.7cm) Aortic Valve AoV Vmax 1.7 m/s Ao Peak GR 11.6 mmHg LVOT Vmax 1.0 m/s AoV VTI 0.4 m Ao Mean GR 5.6 mmHg LVOT VTI 0.27 m ANTIONE (VMAX) 2.33 cm2 ANTIONE (VTI) 3.0 cm2 Mitral Valve MV E Vmax 90.0 cm/s DECEL Time 271 ms MV A Vmax 108.6 cm/s P 1/2 T 86 ms E/A ratio 0.8 MVA (PHT) 2.6 cm2 TDI E/E' Medial 16.2 E/E' Lateral 13.2 Medial E' Peak V 5.56 cm/s Lateral E' Peak V 6.80 cm/s Pulmonary Valve PV Vmax 1.0 m/s PV VTI 0.21 m PV Mean GR 2.4 mmHg PV Peak GR 4.2 mmHg Left Ventricle The left ventricle is normal size. There is normal LV segmental wall motion. Mild left ventricular hypertrophy. LVEF is 60-65%. The left ventricular diastolic function is normal. Right Ventricle The right ventricle is normal size. The right ventricular systolic function is normal. Device lead is present in the right ventricle. Atria The left atrium size is normal. The right atrium size is normal. Aortic Valve The aortic valve is mildly thickened but opens well. No aortic regurgitation is present. There is no aortic valvular stenosis. Mitral Valve Mitral valve leaflets are moderately calcified. There is no evidence of significant mitral regurgitation. There is no mitral valve stenosis. Tricuspid Valve The tricuspid valve is normal in structure. There is no tricuspid valve regurgitation noted. Pulmonic Valve The pulmonary valve is normal in structure. There is no pulmonic valvular regurgitation. Great Vessels The aortic root is normal in size. The IVC is normal in size and collapses >50% with inspiration. Pericardium There is no pericardial effusion. Conclusion Mild left ventricular hypertrophy. LVEF is 60-65%. The aortic valve is mildly thickened but opens well. There is no aortic valvular stenosis. Device lead is present in the right ventricle. DICTATED BY: CATARINA LUJAN MD DATE: 06/01/25 5335 ELECTRONICALLY SIGNED BY: CATARINA LUJAN MD DATE: 06/01/25 3635 Assessment/Plan: ASSESSMENT: S/P Fall injury POA Closed head injury POA Postural dizziness with near syncope POA Acute on chronic kidney disease POA Chronic anemia POA Cardiac permanent pacemaker status POA Hypertension POA Hyperlipidemia POA Diabetes POA CVA with right-sided weakness POA Discharge Instructions: You were admitted after an episode of dizziness and fainting (syncope). Testing of your heart, pacemaker, brain imaging, and blood vessels was reassuring. What Was Found CT scan of the head showed no bleeding Heart ultrasound (echocardiogram) was normal Pacemaker check showed normal function with no abnormal heart rhythms Orthostatic vitals were negative for orthostatic hypotension Carotid ultrasound showed no significant blockage No clear heart or neurologic cause was found Low blood sugar (hypoglycemia) may have contributed to your symptoms Medications Continue all home medications as prescribed Do not skip meals, especially when taking diabetes medications Take aspirin 81 mg daily as previously prescribed Review diabetes medications with your primary care doctor to avoid low blood sugar Diabetes / Blood Sugar Safety Check blood sugar regularly Eat regular meals and snacks If you feel dizzy, sweaty, shaky, or confused, check your blood sugar immediately Treat low blood sugar with juice or glucose tablets and seek help if symptoms do not improve Activity Get up slowly from sitting or lying positions Use assistance when walking if you feel dizzy Avoid driving until cleared by your doctor When to Seek Medical Care Go to the ER or call 911 if you develop: Fainting or near-fainting Chest pain or shortness of breath New weakness, trouble speaking, or confusion Repeated low blood sugar episodes Palpitations or fast/irregular heartbeat Follow-Up Follow up with your primary care physician within 1 week Follow up with Cardiology as scheduled Bring a list of all medications to your appointments Home Medications: Reported Medications Trazodone HCl (Trazodone HCl) 100 Mg Tablet, 100 MG PO HS, TAB 06/01/25 Metoprolol Tartrate (Metoprolol Tartrate) 50 Mg Tablet, 50 MG PO BID, TAB 02/02/24 Losartan Potassium (Losartan Potassium) 100 Mg Tablet, 100 MG PO DAILY, TAB 02/02/24 Hydralazine HCl (Hydralazine HCl) 25 Mg Tablet, 25 MG PO TID, TAB 02/02/24 Dapagliflozin Propanediol (Farxiga) 10 Mg Tablet, 10 MG PO DAILY, TAB 02/02/24 Atorvastatin Calcium (LIPITOR) 40 Mg Tablet, 40 MG PO DAILY, TAB 02/02/24 Aspirin (ASPIRIN 81 MG ECTAB) 81 Mg Ectab, 81 MG PO DAILY, TAB.EC 02/02/24 Amlodipine Besylate (Amlodipine Besylate) 5 Mg Tablet, 5 MG PO BID, TAB 02/02/24 Discontinued Reported Medications Linagliptin (Tradjenta) 5 Mg Tablet, 5 MG PO DAILY, TAB 02/02/24 Ferrous Sulfate (Ferrous Sulfate) 325 Mg (65 Mg Iron) Ectab, 325 MG PO DAILY, TAB.EC 02/02/24 Cyanocobalamin (Vitamin B-12) (B-12) 5,000 Mcg Tab.rapdis, 5000 MCG PO DAILY, TAB 02/02/24 Continued Medications: Amlodipine Besylate (Amlodipine Besylate) 5 Mg Tablet 5 MG PO BID, TAB Aspirin (Aspirin 81 Mg Ectab) 81 Mg Ectab 81 MG PO DAILY, TAB.EC Atorvastatin Calcium (Lipitor) 40 Mg Tablet 40 MG PO DAILY, TAB Dapagliflozin Propanediol (Farxiga) 10 Mg Tablet 10 MG PO DAILY, TAB Hydralazine HCl (Hydralazine HCl) 25 Mg Tablet 25 MG PO TID, TAB Losartan Potassium (Losartan Potassium) 100 Mg Tablet 100 MG PO DAILY, TAB Metoprolol Tartrate (Metoprolol Tartrate) 50 Mg Tablet 50 MG PO BID, TAB Trazodone HCl (Trazodone HCl) 100 Mg Tablet 100 MG PO HS, TAB Time spent arranging discharge: 1-30 minutes ATTESTATION BY PHYSICIAN I have seen and examined the patient. I reviewed the documentation, medical decision making, and treatment plan as noted by the resident physician above. I agree with the findings and plan of care. MATHEW JIMENEZ MD, HEMA MD Jun 02, 2025 15:25
[2025-06-02 17:05] VITALS: O2SAT 99
== END 2025-06-02 16:40 | disposition home or self-care (01) ==
LOC: EDH 01:30 → INTOOBSV 04:23 → UNDOADMOB 04:23 → EDHIP 04:23 → 3DH 07:20
PROVIDERS: ADMIT Internal Medicine; ATTEND Internal Medicine
DX: S09.90XA Unspecified injury of head, initial encounter (principal); I63.9 Cerebral infarction, unspecified; I12.9 Hypertensive chronic kidney disease with stage 1 through stage 4 chronic kidney disease, or unspecified chronic kidney disease; R55 Syncope and collapse; R53.1 Weakness; R00.1 Bradycardia, unspecified; E11.22 Type 2 diabetes mellitus with diabetic chronic kidney disease; N18.31 Chronic kidney disease, stage 3a; I69.351 Hemiplegia and hemiparesis following cerebral infarction affecting right dominant side; H93.19 Tinnitus, unspecified ear; H91.90 Unspecified hearing loss, unspecified ear; E78.5 Hyperlipidemia, unspecified; D64.9 Anemia, unspecified; G31.9 Degenerative disease of nervous system, unspecified; Z79.4 Long term (current) use of insulin; Z79.82 Long term (current) use of aspirin; Z79.899 Other long term (current) drug therapy; Z95.0 Presence of cardiac pacemaker; W18.30XA Fall on same level, unspecified, initial encounter; Y93.89 Activity, other specified; Y92.89 Other specified places as the place of occurrence of the external cause; Y99.8 Other external cause status
CPT/HCPCS: 99285; 83036; 84443; 82550; 83735; 84484 ×2; 80053; 85025 ×3; 82948 ×7; 81001; 36415 ×2; 71045; 70450; 93306; 93356; 93880; 93005; 80048; G0378 ×4; 96360